=== PATIENT | female | born 1970 | race Caucasian/White ===

== ENCOUNTER 2016-08-05 15:58 | Emergency (ER) | payer OTHER ==
[~2016-08-05] VITALS: Ht 172.7 cm; Wt 113.4 kg
[2016-08-05] MEDS ORDERED: ASPI1TAB PO (16:38)
[2016-08-05] MEDS ORDERED: ONDANSETRON 4MG/2ML VIAL (J2405) IV ONE (17:30)
[2016-08-05] MEDS ORDERED: KETOROLAC 30 MG/ML VIAL (J1885) IV ONE (17:30)
[2016-08-05 18:09] LABS: BASO % 0.4 % (0.0-1.0); EOS # 0.2 K/mm3 (0.0-0.50); EOS % 1.6 % (0.0-3.0); LARGE UNSTAINED CELL # 0.2 K/mm3 (0.0-0.4); LARGE UNSTAINED CELL % 1.7 % (0.0-4.0); LYMPH # 2.6 K/mm3 (1.5-4.5); LYMPH % 23.2 % (24.0-44.0); MEAN CORPUSCULAR HEMOGLOBIN 29.2 pg (27.0-33.0); MEAN CORPUSCULAR VOLUME 88.5 fl (80.0-96.0); MONO # 0.8 K/mm3 (0.0-0.8); MONO % 7.3 % (0.0-5.0); NEUTROPHILS # 7.4 K/mm3 (1.8-7.7); NEUTROPHILS % 65.9 % (36.0-66.0); PLATELET COUNT, AUTOMATED 272 k/mm3 (150-450); RED CELL DISTRIBUTION WIDTH 13.1 % (11.5-14.5); WHITE BLOOD COUNT 11.2 K/mm3 (4.0-10.0)
[2016-08-05 18:25] LABS: ANION GAP 6 MEQ/L (8-16); BLOOD UREA NITROGEN 9 MG/DL (7-18); CALCIUM LEVEL 8.4 MG/DL (8.5-10.1); CARBON DIOXIDE LEVEL 29 MEQ/L (21-32); CHLORIDE LEVEL 101 MEQ/L (98-107); CREATININE FOR GFR 0.91 MG/DL (0.55-1.02); GLOMERULAR FILTRATION RATE > 60.0 (>58); GLUCOSE, FASTING 97 MG/DL (70-105); POTASSIUM SERUM 3.8 MEQ/L (3.5-5.1); SODIUM LEVEL 136 MEQ/L (136-145)
[2016-08-05 18:49] VITALS: BP 141/73
[2016-08-05] MEDS ORDERED: ZOFR4TAB3 PO (19:09)
[2016-08-05] MEDS ORDERED: MACR100C43 PO (19:09)
== END 2016-08-05 19:24 | disposition home or self-care (01) ==
LOC: M ED 17:08
DX: N39.0 Urinary tract infection, site not specified (principal); R11.0 Nausea

== ENCOUNTER 2017-03-07 10:41 | Emergency (ER) | payer OTHER, SELFPAY ==
[2017-03-07] MEDS: predniSONE 20 MG TAB PO ×3 (12:06)
[2017-03-07] MEDS: ALBUTEROL SULFATE 2.5 MG/0.5 ML INH NEB SOLN NEB ×3 (12:15)
== END 2017-03-07 13:12 | disposition home or self-care (01) ==
LOC: M ED 10:41
DX: J45.901 Unspecified asthma with (acute) exacerbation (principal); J20.9 Acute bronchitis, unspecified; Z87.891 Personal history of nicotine dependence
CPT/HCPCS: 71046

== ENCOUNTER 2017-04-27 09:33 | Emergency (ER) | payer OTHER ==
[2017-04-27] MEDS: NS 1,000 ML IV ×3 (11:26)
[2017-04-27] MEDS: MECLIZINE 25 MG TABLET PO ×3 (11:26)
[2017-04-27 11:29] LABS: HEMATOCRIT 36.9 % (36.0-47.0); HEMOGLOBIN 12.1 g/dl (12.0-16.0); MEAN CORPUSCULAR HEMOGLOBIN 28.9 pg (27.0-33.0); MEAN CORPUSCULAR HGB CONC 32.8 g/dl (32.0-36.5); MEAN CORPUSCULAR VOLUME 88.3 fl (80.0-96.0); PLATELET COUNT, AUTOMATED 258 10^3/uL (150-450); RED BLOOD COUNT 4.18 10^6/uL (4.00-5.40); RED CELL DISTRIBUTION WIDTH 13.1 % (11.5-14.5); WHITE BLOOD COUNT 8.4 10^3/uL (4.0-10.0)
[2017-04-27 11:53] LABS: ALBUMIN 3.5 GM/DL (3.2-5.2); ALBUMIN/GLOBULIN RATIO 0.83 (1.00-1.93); ALKALINE PHOSPHATASE 68 U/L (45-117); ALT/SGPT 29 U/L (12-78); ANION GAP 5 MEQ/L (8-16); AST/SGOT 25 U/L (7-37); BILIRUBIN,TOTAL 0.3 MG/DL (0.2-1.0); BLOOD UREA NITROGEN 12 MG/DL (7-18); CALCIUM LEVEL 8.9 MG/DL (8.5-10.1); CARBON DIOXIDE LEVEL 30 MEQ/L (21-32); CHLORIDE LEVEL 105 MEQ/L (98-107); CREATININE FOR GFR 0.72 MG/DL (0.55-1.30); GLOMERULAR FILTRATION RATE > 60.0 (>58); GLUCOSE, FASTING 104 MG/DL (70-100); POTASSIUM SERUM 4.5 MEQ/L (3.5-5.1); SODIUM LEVEL 140 MEQ/L (136-145); TOTAL PROTEIN 7.7 GM/DL (6.4-8.2)
== END 2017-04-27 12:53 | disposition home or self-care (01) ==
LOC: M ED 09:33
DX: H81.10 Benign paroxysmal vertigo, unspecified ear (principal); I10 Essential (primary) hypertension; J45.909 Unspecified asthma, uncomplicated; Z79.82 Long term (current) use of aspirin; Z87.891 Personal history of nicotine dependence
CPT/HCPCS: 70450

== ENCOUNTER → 2017-07-05 | Outpatient (REF) | payer OTHER ==
[2017-07-05 18:34] LABS: ESTIMATED AVERAGE GLUCOSE 123 MG/DL (60-110); HEMOGLOBIN A1c 5.9 %
[2017-07-05 18:45] LABS: ALBUMIN 3.8 GM/DL (3.2-5.2); ALKALINE PHOSPHATASE 75 U/L (45-117); ALT/SGPT 35 U/L (12-78); ANION GAP 6 MEQ/L (8-16); AST/SGOT 27 U/L (7-37); BILIRUBIN,TOTAL 0.3 MG/DL (0.2-1.0); BLOOD UREA NITROGEN 14 MG/DL (7-18); CALCIUM LEVEL 8.6 MG/DL (8.5-10.1); CARBON DIOXIDE LEVEL 28 MEQ/L (21-32); CHLORIDE LEVEL 107 MEQ/L (98-107); CHOLESTEROL LEVEL 181 MG/DL (<200); CHOLESTEROL RISK RATIO 4.525 (<5); FREE T4 1.06 NG/DL (0.76-1.46); GLOMERULAR FILTRATION RATE > 60.0 (>58); GLUCOSE, FASTING 87 MG/DL (70-100); HDL CHOLESTEROL 40 MG/DL (>40); LDL CHOLESTEROL 89.8 MG/DL (<100); NON-HDL-C 141 MG/DL; POTASSIUM SERUM 4.3 MEQ/L (3.5-5.1); SODIUM LEVEL 141 MEQ/L (136-145); THYROID STIMULATING HORMONE 0.974 uIU/ML (0.358-3.740); TRIGLYCERIDES LEVEL 256 MG/DL (<150)
== END ==
LOC: M SFHCPLAZ 15:38
DX: E66.01 Morbid (severe) obesity due to excess calories (principal); R35.1 Nocturia
CPT/HCPCS: 84443

== ENCOUNTER 2017-07-28 12:34 | Emergency (ER) | payer OTHER ==
[2017-07-28] MEDS: ACETAMINOPHEN 325 MG TAB PO (17:30)
== END 2017-07-28 17:33 | disposition home or self-care (01) ==
LOC: M ED 12:34
DX: M17.11 Unilateral primary osteoarthritis, right knee (principal); I10 Essential (primary) hypertension; J45.909 Unspecified asthma, uncomplicated; F33.9 Major depressive disorder, recurrent, unspecified; Z79.899 Other long term (current) drug therapy; Z79.82 Long term (current) use of aspirin; F17.210 Nicotine dependence, cigarettes, uncomplicated
CPT/HCPCS: 99283

== ENCOUNTER 2018-01-28 11:17 | Emergency (ER) | payer OTHER | END 2018-01-28 11:54 | disposition home or self-care (01) | LOC: M ED 11:17 | DX: H60.11 Cellulitis of right external ear (principal); I10 Essential (primary) hypertension; J45.909 Unspecified asthma, uncomplicated; F32.9 Major depressive disorder, single episode, unspecified | CPT/HCPCS: 99282 ==

== ENCOUNTER → 2018-05-22 | Outpatient (REF) | payer OTHER ==
[~2018-05-22] MED LIST: ASPI1TAB PO; BACT800T5 PO; ESCI10TA2; FISH100049 PO; MACR100C43 PO; MECL-68 PO; METO1TAB32; NORCOTAB PO; PRED20TA PO; PROAAER10 INH; VENL37.52; ZITHTAB PO; ZOFR4TAB14 PO
== END ==
LOC: M SFHCPLAZ 12:12
PROVIDERS: ATTEND Physician Assistant
DX: R35.0 Frequency of micturition (principal)

== ENCOUNTER → 2018-07-17 | Outpatient (REF) | payer OTHER ==
[~2018-07-17] MED LIST changes: -ASPI1TAB PO; +ASPI81TA26 PO; +HYDR-3715 PO; -NORCOTAB PO
[2018-07-17 19:23] LABS: BACTERIA, URINE AUTO NEGATIVE (NEGATIVE); MUCUS, URINE SMALL (NEGATIVE); RBC, URINE AUTO 1 /HPF (0-3); SQUAMOUS EPITHELIAL CELL UR AU 2 /HPF (0-6); WBC, URINE AUTO 2 /HPF (0-3)
== END ==
LOC: M SFHCPLAZ 17:51
PROVIDERS: ATTEND Family Medicine
DX: R31.29 Other microscopic hematuria (principal)

== ENCOUNTER → 2018-08-22 | Outpatient (REF) | payer OTHER ==
[2018-08-22 18:15] LABS: ALBUMIN 3.4 GM/DL (3.2-5.2); ALT/SGPT 32 U/L (12-78); BILIRUBIN,TOTAL 0.3 MG/DL (0.2-1.0); BLOOD UREA NITROGEN 11 MG/DL (7-18); CALCIUM LEVEL 8.8 MG/DL (8.5-10.1); CARBON DIOXIDE LEVEL 26 MEQ/L (21-32); CHLORIDE LEVEL 107 MEQ/L (98-107); CREATININE FOR GFR 0.96 MG/DL (0.55-1.30); FREE T4 0.91 NG/DL (0.76-1.46); GLOMERULAR FILTRATION RATE > 60.0 (>58); GLUCOSE, FASTING 137 MG/DL (70-100); SODIUM LEVEL 141 MEQ/L (136-145); THYROID STIMULATING HORMONE 0.861 uIU/ML (0.358-3.740); TOTAL PROTEIN 7.6 GM/DL (6.4-8.2)
[2018-08-22 18:28] LABS: APPEARANCE, URINE CLEAR (CLEAR); BACTERIA, URINE AUTO NEGATIVE (NEGATIVE); BILIRUBIN, URINE AUTO NEGATIVE (NEGATIVE); BLOOD, URINE BLOOD NEGATIVE (NEGATIVE); COLOR, URINE YELLOW (YELLOW); GLUCOSE, URINE (UA) AUTO NEGATIVE (NEGATIVE); KETONE, URINE AUTO NEGATIVE (NEGATIVE); LEUKOCYTE ESTERASE, URINE AUTO NEGATIVE (NEGATIVE); MUCUS, URINE SMALL (NEGATIVE); NITRITE, URINE AUTO NEGATIVE (NEGATIVE); PROTEIN, URINE AUTO NEGATIVE (NEGATIVE); RBC, URINE AUTO 2 /HPF (0-3); SQUAMOUS EPITHELIAL CELL UR AU 2 /HPF (0-6); UROBILINOGEN, URINE AUTO 0.2 mg/dL (0.0-2.0); WBC, URINE AUTO 0 /HPF (0-3)
[2018-08-22 18:31] LABS: HEMOGLOBIN A1c 6.2 %
== END ==
LOC: M SFHCPLAZ 15:31
PROVIDERS: ATTEND Family Medicine
DX: R63.1 Polydipsia (principal); R35.0 Frequency of micturition

== ENCOUNTER 2018-11-15 11:17 | Emergency (ER) | payer OTHER ==
[~2018-11-15] VITALS: Ht 162.6 cm; Wt 146.3 kg
[2018-11-15] MEDS ORDERED: TESS100C PO (15:54)
[2018-11-15] MEDS ORDERED: FLON1SPR NARES (15:54)
--- NOTE | 2018-11-15 16:04 | REP ---
Chest x-ray: Two views. History: Productive cough . Comparison study: March 07, 2017 . Findings: The lungs are well inflated and free of infiltrate. The pleural angles are sharp. The heart size is normal. Pulmonary vasculature is not increased. No significant bony abnormality is seen. Impression: Negative chest x-ray. Electronically Signed by Itz Chou MD 11/15/2018 03:54 P
[2018-11-15 16:23] VITALS: BP 142/78
== END 2018-11-15 16:48 | disposition home or self-care (01) ==
LOC: M ED 11:17
DX: J06.9 Acute upper respiratory infection, unspecified (principal); J30.2 Other seasonal allergic rhinitis; J30.81 Allergic rhinitis due to animal (cat) (dog) hair and dander; F17.210 Nicotine dependence, cigarettes, uncomplicated; Z79.899 Other long term (current) drug therapy; Z79.82 Long term (current) use of aspirin

== ENCOUNTER 2020-10-31 20:43 | Emergency (ER) | payer OTHER ==
[~2020-10-31] VITALS: Ht 175.3 cm; Wt 159.1 kg
[~2020-10-31 20:43] MED LIST changes: +ESCI10TA16; -ESCI10TA2; +FLON1SPR NARES; -MECL-68 PO; +MECL1TAB31 PO; +TESS100C PO
[2020-10-31 22:43] VITALS: O2SAT 97
--- NOTE | 2020-10-31 23:29 | REPVR ---
PROCEDURE INFORMATION: Exam: XR Chest Exam date and time: 10/31/20 (10:25pm) Age: 50 years old Clinical indication: SOB and cough TECHNIQUE: Imaging protocol: XR of the chest Views: 2 views COMPARISON: Chest films of 01/07/17 FINDINGS: Slightly suboptimal inspiratory effort. No focal infiltrates. No pleural effusions. No significant vascular congestion. Diffuse degenerative thoracic spine changes again seen. IMPRESSION: No acute findings. In general, a similar appearance was noted in 2016. Electronically signed by: Tosha Mead On 10/31/2020 23:28:47 PM
[2020-10-31 23:39] LABS: BASO # 0.1 10^3/uL (0.0-0.2); BASO % 0.6 % (0.0-1.0); EOS # 0.5 10^3/uL (0.0-0.5); EOS % 4.4 % (0.0-3.0); LYMPH # 4.1 10^3/uL (1.5-5.0); LYMPH % 39.7 % (24.0-44.0); MEAN CORPUSCULAR HEMOGLOBIN 29.1 pg (27.0-33.0); MEAN CORPUSCULAR HGB CONC 32.5 g/dl (32.0-36.5); MEAN CORPUSCULAR VOLUME 89.5 fl (80.0-96.0); MONO # 0.9 10^3/uL (0.0-0.8); MONO % 8.2 % (2.0-8.0); NEUTROPHILS # 4.8 10^3/uL (1.5-8.5); NEUTROPHILS % 46.5 % (36.0-66.0); PLATELET COUNT, AUTOMATED 232 10^3/uL (150-450); RED BLOOD COUNT 4.47 10^6/uL (4.00-5.40); WHITE BLOOD COUNT 10.4 10^3/uL (4.0-10.0)
[2020-10-31] MEDS ORDERED: BENZONATATE 100 MG CAP PO ONE (23:50)
[2020-11-01 00:10] LABS: D-DIMER QUANT > 4000 ng/ml (<500)
[2020-11-01] MEDS ORDERED: ISOVUE-370 76% 100ML VIAL As Ordered ONE (00:42)
--- NOTE | 2020-11-01 01:28 | REPVR ---
PROCEDURE INFORMATION: Exam: CTA Chest With Contrast Exam date and time: 11/01/2020 12:54 AM Age: 50 years old Clinical indication: Other: Elevated d dimer, SOB, RO pe TECHNIQUE: Imaging protocol: Computed tomographic angiography of the chest with contrast. 3D rendering (Not supervised by radiologist): MIP and/or 3D reconstructed images were created by the technologist. Radiation optimization: All CT scans at this facility use at least one of these dose optimization techniques: automated exposure control; mA and/or kV adjustment per patient size (includes targeted exams where dose is matched to clinical indication); or iterative reconstruction. Contrast material: ISOVUE 370; Contrast volume: 75 ml; Contrast route: INTRAVENOUS (IV); COMPARISON: CT ANGIO CHEST 03/27/2015 5:17 PM FINDINGS: Pulmonary arteries: There is a large saddle pulmonary embolism with a large amount of thrombus extending into lobar, segmental, and subsegmental arteries throughout both lungs. Aorta: Unremarkable. No aortic aneurysm. No aortic dissection. Lungs: Clear. No consolidation. No masses. Pleural spaces: No pneumothorax. No pleural effusion. Heart: The right ventricle is dilated with RV-LV ratio of 1.5. No pericardial effusion. Lymph nodes: Unremarkable. No enlarged lymph nodes. Bones/joints: Unremarkable. No acute fracture. Soft tissues: Unremarkable. IMPRESSION: 1. Large saddle pulmonary embolism with thrombus extending throughout both lungs. 2. Enlarged right ventricle suggesting right heart strain with RV-LV ratio of 1.5. Findings were discussed with JEIMY YOST at 1:27 AM EDT on 11/01/2020. Electronically signed by: Mateo Fairbanks On 11/01/2020 01:28:11 AM
[2020-11-01] MEDS ORDERED: FISH1000 PO (01:35)
[2020-11-01] MEDS ORDERED: HOME MED LIST COMPLETE! XX SCH (01:35)
[2020-11-01 01:44] LABS: INR 1.09; PROTHROMBIN TIME 14.6 SECONDS (12.7-14.5)
[2020-11-01 01:45] LABS: PARTIAL THROMBOPLASTIN TIME 32.1 SECONDS (25.9-37.0)
[2020-11-01] MEDS ORDERED: HEPARIN DRIP 25,000 UNITS in IV 1 EA IV SCH (02:00)
[2020-11-01] MEDS ORDERED: HEPARIN SOD (PORCINE) 5000UNITS/ML 1ML VIAL/SYRINGE IV ONE (02:00)
[2020-11-01 02:39] LABS: CK-MB VALUE MASS 1.3 NG/ML (<3.6); MB/CK RELATIVE INDEX 1.57 (< OR =4); TROPONIN I 0.04 NG/ML (< 0.10)
[2020-11-01 02:49] LABS: RSV AMPLIFICATION NEGATIVE (NEGATIVE)
--- NOTE | 2020-11-01 03:17 | REPVR ---
PROCEDURE INFORMATION: Exam: US Duplex Lower Extremity Veins, Bilateral Exam date and time: 11/01/2020 3:07 AM Age: 50 years old Clinical indication: Swelling (edema) of limb; Lower extremity, bilateral; Additional info: Saddle pe, RO clots in the legs TECHNIQUE: Imaging protocol: Real-time duplex ultrasound of the extremities with 2-D govea scale, color Doppler flow and spectral waveform analysis with image documentation. Complete exam focused on the bilateral lower extremity veins. COMPARISON: RENAL US 07/24/2018 11:53 AM FINDINGS: Right deep veins: Unremarkable. The common femoral, femoral, proximal profunda femoral and popliteal veins are patent without thrombus. Normal Doppler waveforms. Normal compressibility and/or augmentation response. Left deep veins: No intraluminal thrombus is seen in the common or superficial femoral veins. There is occlusive thrombus in the popliteal vein. The trifurcation and veins in the foreleg are not well visualized due to patient body habitus. Soft tissues: Unremarkable. IMPRESSION: Occlusive thrombus in the left popliteal vein. Electronically signed by: Mateo Fairbanks On 11/01/2020 03:16:53 AM
[2020-11-01] MEDS ORDERED: ONDANSETRON 4MG/2ML VIAL IV ONE (04:20)
[2020-11-01 04:30] VITALS: BP 143/79
--- NOTE | 2020-11-01 06:28 | ECGEPIP ---
[facility] - ED Test Date: 2020-10-31 Pat Name: MIREYA VARGAS Department: Room: - Gender: Female Computer Installer: SB : 1970 Requested By: JEIMY Holley PA-C Order Number: [id number] Reading MD: Espinoza Monteiro Measurements Intervals [place] Rate: 86 P: 52 IN: 128 QRS: 24 QRSD: 96 T: 8 QT: 412 QTc: 493 Interpretive Statements Normal sinus rhythm Inferior infarct , age undetermined Nonspecific ST T wave changes Baseline artifact may affect reading Baseline wandering may affect reading cw 04/27/[address] T wave changes Electronically Signed on 11-01-2020 6:28:08 EDT by Espinoza Monteiro
== END 2020-11-01 04:49 | disposition short-term general hospital (02) ==
LOC: M ED 20:43
DX: I82.432 Acute embolism and thrombosis of left popliteal vein (principal); I26.92 Saddle embolus of pulmonary artery without acute cor pulmonale; I51.7 Cardiomegaly; R79.1 Abnormal coagulation profile; E11.9 Type 2 diabetes mellitus without complications; Z77.22 Contact with and (suspected) exposure to environmental tobacco smoke (acute) (chronic); Z79.82 Long term (current) use of aspirin
CPT/HCPCS: 71046; 71275; 80047; 81240; 82550; 82553; 83880; 84311; 85025; 85300; 85301; 85303; 85305; 85379; 85610; 85730; 86147; 87631; 93005; 93041; 93970; 94760; 96374; 96375; 99285; J1644; J2405; Q9967

== ENCOUNTER 2020-12-24 15:25 | Emergency (ER) | payer OTHER ==
[~2020-12-24] VITALS: Ht 175.3 cm; Wt 159.1 kg
[~2020-12-24 15:25] MED LIST changes: +FISH1000 PO
[2020-12-24 15:26] VITALS: BP 148/76
--- OUTSIDE RECORDS SUMMARY | 2020-12-24 15:34 | CCD ---
Author Author [facility] Organization [facility] Address Unknown Phone Unavailable Care Team Providers Care Combine Driver Name Role Phone Lupe Romero Unavailable PROBLEMS Type Condition ICD9-CM Code [id number] Code Onset Dates Condition S tatus W/U Status Risk SNOMED Code Notes Problem Hot flashes due to menopause N95.1 Active confirme d 868437883 Problem Depression with anxiety F41.8 Active confirmed 328105262 Problem Body mass index (BMI) of 40.0-44.9 in adult Z68.41 Active confirmed 975957003 Problem Anxiety F41.9 Active confirmed 58634065 Problem Prediabetes R73.03 Active confirmed 65785485 2 Problem Polydipsia R63.1 Active confirmed 71990489 Problem Morbid (severe) obesity due to excess calories E66 .01 Active confirmed 271847400 Problem Other chronic pain G89.29 Active confirmed 8 2180738 Problem 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 Active confirmed 09583 685884027 Problem Cyst on ear Q18.1 Active confirmed 13211967 570146 ALLERGIES No Known Allergies ENCOUNTERS from 1970 to 2020-11-06 Encounter Location Date Provider Diagnosis [address] [phone] [place] [address] Nov, Lupe Romero IMMUNIZATIONS No Information SOCIAL HISTORY Tobacco Use: Social History Observation Description Date Details (start date - stop date) Former Smoker Sex Assigned At : Social History Observation Description Sex Assigned At Unknown Education: Question Answer Notes Level of Education: High School Language: Question Answer Notes Languages spoken: Romansh Catholic: Question Answer Notes Catholic will only accept blo od from other family members Sexual Hx: Question Answer Notes Had sex in the last 12 months (vaginal, oral, or anal)? No LMP: 06/05/2017 Have you ever had an STD? No Alcohol Screening: Question Answer Notes Did you have a drink containing alcohol in the past year? No Points 0 Interpretation Negative Tobacco Use: Question Answer Notes Are you a: former smoker How long has it been since you last smoked? 6-12 months REASON FOR REFERRAL No Information VITAL SIGNS No information MEDICATIONS Medication SIG (Take, Route, Frequency, Duration) Notes Start Da te End Date Status hydrOXYzine HCl 25 mg 1 tablet as needed Orally every 6 hrs for 30 day(s) May, Active Sudafed 30 MG 1 tablet as needed Orally ev roberto 6 hrs as needed for congestion for 10 day(s) July, Active Fluticasone Propionate 50 MCG/ACT 1 spray in each nost ril Nasally As directed for 30 day(s) twice daily for 10 days, then daily thereafter May, Active Chloraseptic Sore Throat 6-10 MG 1 lozenge as needed Mouth/Throa t every 2 hrs Active HYDROcodone-Acetaminophen 5-325 MG 1 tablet as needed Orally every 6 hrs Not-Taking Venlafaxine HCl ER 37.5 MG 1 capsule with food Orally Once a day for 30 day(s) July, Not-Taking Oxybutynin Chloride 5 MG 1 tablet Orally Twice a day for overactive bladder for 30 day(s) Aug, Active Fish Oil 1000 MG 1 capsule Orally Once a day Active Aspirin 81 81 MG 1 tablet Orally Once a day Active Amoxicillin 500 MG 1 capsule Orally every 8 hrs completed Not-Taking diphenhydrAMINE HCl 50 MG 1 capsule as needed Orally n ightly with Sudafed for 10 day(s) July, Active PROCEDURES No Information RESULTS No Results REASON FOR VISIT question on pulse ox MEDICAL (GENERAL) HISTORY Type Description Date Medical History Morbid obesity Medical History Very poor dentition Medical History ?Palpitations - HOLTER by Dr. Escobar Medical History Chronic allergic rhinitis Medical History Current light smoker; former heavy smoker x 3 years; hx of prior pneumovax Surgical History Tonsillectomy child Surgical History x 1 1993 Hospitalization History pneumonia child Goals Section No Information Health Concerns No Information MEDICAL EQUIPMENT No Information MENTAL STATUS No Information FUNCTIONAL STATUS No Information ASSESSMENTS No Information PLAN OF TREATMENT Medication Medication Name Sig Start Date Stop Date Oxybutynin Chloride 5 MG 1 tablet Orally Twice a day for overactive bladder for 30 day(s) Aug, Next Appt Details Provider Name:Lupe Romero, 2020-11-17 11:15:00 AM, [address] [facility], , [place], [address], Insurance Providers Payer Name Payer Address Payer Phone Insured Name Patient Relati onship to Insured Coverage Start Date Coverage End Date [facility] [address] [facility] [phone] MIREYA CHRISTOPHER self
--- OUTSIDE RECORDS SUMMARY | 2020-12-24 15:34 | CCD | Continuity of Care Document ---
Author Author Laila HUANG MD Organization Unknown Address [address] [place] [address] [address] [place] [address] Phone [phone] Care Team Providers Care Soft Iron Inspector Name Role Phone Lupe Romero MD AUT [phone] Problems Description No Information Available Social History Type Date Description Comments Sex Unknown Allergies, Adverse Reactions, Alerts Description No Information Available Medications Description No Information Available Immunizations Description No Information Available Vital Signs Description No Information Available Results Description No Information Available Procedures Date Code Description Status 11/02/2020 62310 Arterial Infusion Thrombolysis O ther Than Carotid Completed 11/02/2020 93089 Catheter Placement Left/Right Pu lmonary Artery Completed 11/01/2020 72163 Hospital Initial Care Level 2 Co mpleted Medical Devices Description No Information Available Encounters Description No Information Available Assessments Date Code Description Provider 11/02/2020 I26.02 Saddle embolus of pulmonary ann-marie ry with acute cor pulmonale Abner Huang MD 11/01/2020 I26.02 Saddle embolus of pulmonary ann-marie ry with acute cor pulmonale Abner Huang MD Plan of Treatment No Information Available Functional Status Description No Information Available Mental Status Description No Information Available Referrals Refer to Reason for Referral Status Appt Date Abner Huang MD Created [address] [place] [address] [phone]
--- OUTSIDE RECORDS SUMMARY | 2020-12-24 15:34 | CCD ---
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 20 Active confirmed 306799378 Problem Body mass index (BMI) of 40.0-44.9 in adult Z68.41 Active confirmed 616885915 Problem Polydipsia R63.1 Active confirmed 15091522 Problem Anxiety F41.9 Active confirmed 83593730 Problem Acute saddle pulmonary embolism with acute cor pulmonale I26.02 Active confirmed 324432511 Problem Allergic to cats J30.81 Active confirmed 232 518170 ALLERGIES No Known Allergies ENCOUNTERS from 1970 to 2020-11-24 Encounter Location Date Provider Diagnosis [place] [id number] [facility] [phone] [place] [address] Nov, Dulce Oneil IMMUNIZATIONS Vaccine Route Administration Date Status COVID-19 dose #1 given elsewhere Unspecified Unknown Oct 21, 2020 Administered SOCIAL HISTORY Tobacco Use: Social History Observation Description Date Details (start date - stop date) Former Smoker Sex Assigned At : Social History Observation Description Sex Assigned At Unknown Education: Question Answer Notes Level of Education: High School Language: Question Answer Notes Languages spoken: Danish Yarsanism: Question Answer Notes Yarsanism will only accept blo od from other [...] Notes Start Da te End Date Status HYDROcodone-Acetaminophen 5-325 MG 1 tablet as needed Orally every 6 hrs Not-Taking Eliquis 5 MG as directed Orally Acti ve Fluticasone Propionate 50 MCG/ACT 1 spray in each nost ril Nasally As directed for 30 day(s) twice daily for 10 days, then daily thereafter May, Not-Taking diphenhydrAMINE HCl 50 MG 1 capsule as needed Orally n ightly with Sudafed for 10 day(s) July, Not-Taking Oxybutynin Chloride 5 MG 1 tablet Orally Twice a day for overactive bladder for 30 day(s) Aug, Not-Taking Chloraseptic Sore Throat 6-10 MG 1 lozenge as needed Mouth/Throa t every 2 hrs Not-Taking hydrOXYzine HCl 25 mg 1 tablet as needed Orally every 6 hrs for 30 day(s) May, Not-Taking Amoxicillin 500 MG 1 capsule Orally every 8 hrs completed Not-Taking Fluticasone Propionate 50 MCG/ACT 1 spray in each nost ril Nasally Once a day for 30 day(s) Nov, Active Venlafaxine HCl ER 37.5 MG 1 capsule with food Orally Once a day for 30 day(s) July, Not-Taking Claritin 10 MG 1 tablet Orally Once a day for 30 day(s) Nov, Active Sudafed 30 MG 1 tablet as needed Orally ev roberto 6 hrs as needed for congestion for 10 day(s) July, Not-Taking Albuterol Sulfate (2.5 MG/3ML) 0.083% 3 ml as needed I nhalation every 6 hrs for 30 Days Nov, Active Eliquis 5 MG as directed Orally bid for 30 Days Nov, Active PROCEDURES No Information RESULTS No Results REASON FOR VISIT PA request MEDICAL (GENERAL) HISTORY Type Description Date Medical History Morbid obesity Medical History Very poor dentition Medical History ?Palpitations - HOLTER by Dr. Escobar Medical History Chronic allergic rhinitis Medical History Current light smoker; former heavy smoker x 3 years; hx of prior pneumovax Medical History Saddle pulmonary Embolus c R t. Heart Strain, Ekos cath. placed c alteplase, porsine heparin rx- by Dr. Yuen @ [facility] 10/2020; Left popliteal Vein Thrombus Surgical History Tonsillectomy child Surgical History x 1 1993 Hospitalization History pneumonia child Hospitalization History pulmonary embolism 2020 Goals Section No Information Health Concerns No Information MEDICAL EQUIPMENT No Information MENTAL STATUS No Information FUNCTIONAL STATUS No Information ASSESSMENTS No Information PLAN OF TREATMENT Medication Medication Name Sig Start Date Stop Date Claritin 10 MG 1 tablet Orally Once a day for 30 day(s) Nov, Albuterol Sulfate (2.5 MG/3ML) 0.083% 3 ml as needed I nhalation every 6 hrs for 30 Days Nov, Eliquis 5 MG as directed Orally bid for 30 Days Nov, Fluticasone Propionate 50 MCG/ACT 1 spray in each nost ril Nasally Once a day for 30 day(s) Nov, Next Appt Details Provider Name:Dulce Re Oneil, 12-01 10:30:00 AM, [address] [facility], , [place], [address], Insurance Providers Payer Name Payer Address Payer Phone Insured Name Patient Relati onship to Insured Coverage Start Date Coverage End Date [facility] [address] [facility] [address] MIREYA CHRISTOPHER self
--- OUTSIDE RECORDS SUMMARY | 2020-12-24 15:34 | CCD ---
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 20 Active confirmed 180236837 Problem Body mass index (BMI) of 40.0-44.9 in adult Z68.41 Active confirmed 826847102 Problem Polydipsia R63.1 Active confirmed 40805529 Problem Anxiety F41.9 Active confirmed 52730587 Problem Acute saddle pulmonary embolism with acute cor pulmonale I26.02 Active confirmed 256610394 Problem Allergic to cats J30.81 Active confirmed 232 697506 ALLERGIES No Known Allergies ENCOUNTERS from 1970 to 2020-11-20 Encounter Location Date Provider Diagnosis [facility] [address] [facility] [phone] [place] [address] Nov, Dulce Oneil IMMUNIZATIONS Vaccine Route Administration [...] School Language: Question Answer Notes Languages spoken: Kyrgyz Sikh: Question Answer Notes Sikh will only accept blo od from other [...] Information RESULTS No Results REASON FOR VISIT covid vaccine inform. MEDICAL (GENERAL) HISTORY Type Description Date Medical [...] porsine heparin rx- by Dr. Yuen @ [facility] 10/2020; Left popliteal Vein Thrombus Surgical History [...] Name:Dulce Re Oneil, 12-01 10:30:00 AM, [address] [facility], , [place], [address], Insurance Providers Payer Name Payer Address Payer Phone Insured Name Patient Relati onship to Insured Coverage Start Date Coverage End Date [facility] [address] [facility] [address] MIREYA CHRISTOPHER self
--- OUTSIDE RECORDS SUMMARY | 2020-12-24 15:34 | CCD ---
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 20 Active confirmed 687000871 Problem Body mass index (BMI) of 40.0-44.9 in adult Z68.41 Active confirmed 092323526 Problem Polydipsia R63.1 Active confirmed 95957426 Problem Anxiety F41.9 Active confirmed 90545968 Problem Acute saddle pulmonary embolism with acute cor pulmonale I26.02 Active confirmed 206885072 Problem Allergic to cats J30.81 Active confirmed 232 013028 ALLERGIES No Known Allergies ENCOUNTERS from 1970 to 2020-11-25 Encounter Location Date Provider Diagnosis [facility] [address] [facility] [phone] [place] [address] 15 Nov, 2020 Dulce Oneil Physical exam, annual Z00.00 ; Acute saddle pulmonary embolism with acute cor pulmonale I26.02 ; Mild intermittent asthma without complication J45.20 ; Allergic to cats J30.81 ; Hypoxia R09.02 and Hypoxia, sleep related G47.34 IMMUNIZATIONS Vaccine Route Administration Date Status COVID-19 dose #1 given elsewhere Unspecified Unknown Oct 21, 2020 Administered SOCIAL HISTORY Tobacco Use: Social History Observation Description Date Details (start date - stop date) Former Smoker Sex Assigned At : Social History Observation Description Sex Assigned At Unknown Education: Question Answer Notes Level of Education: High School Language: Question Answer Notes Languages spoken: Chinese Episcopalian: Question Answer Notes Episcopalian will only accept blo od from other [...] last smoked? 6-12 months REASON FOR REFERRAL from 1970 to 2020-11-25 Reason 50yocf inpt. for PE, had hyp oxia after ekos & alteplase after out of ICU was doing well, but notedto have hypoxia on oximeter to 93%.|She has snored, early am fatigue. Pls. DO HST. Diagnosis 1 Hypoxia, sleep related (G47. 34) Diagnosis 2 Morbid (severe) obesity due to excess calories (E66.01) Referral Organization [facility] Jacek Referring Provider First Name Dulce Referring Provider Last Name Clarice Referring Provider Specialty Family Medicine Referred Provider [facility],Sleep Lab Referred Provider Specialty Neurology Referral Priority Routine General Notes Rebeca Reddy 11/18/2020 3: 51:37 PM > please obtain Tamiko Ching 11/23/2020 2:23:40 PM > [facility] referral done for Dr. Delvalle ID# [id number], form faxed VITAL SIGNS Weight 353.8 lbs Nov, Weight-kg 160.48 kg Nov, Height 68 in Nov, BMI 53.79 kg/m2 Nov, Heart Rate 100 /min Nov, Respiratory Rate 18 /min Nov, Temperature 97.3 degrees Fahrenheit Nov, Oximetry 98% Nov, Blood pressure systolic 124 mm Hg Nov, Blood pressure diastolic 82 mm Hg Nov, MEDICATIONS Medication SIG (Take, Route, Frequency, Duration) [...] Information RESULTS No Results REASON FOR VISIT hospital follow up [facility] MEDICAL (GENERAL) HISTORY Type Description Date Medical [...] porsine heparin rx- by Dr. Yuen @ [facility] 10/2020; Left popliteal Vein Thrombus Surgical History Tonsillectomy child Surgical History x 1 1993 Hospitalization History pneumonia child Hospitalization History pulmonary embolism 2020 Goals Section No Information Health Concerns No Information MEDICAL EQUIPMENT No Information MENTAL STATUS No Information FUNCTIONAL STATUS No Information ASSESSMENTS Encounter Date Diagnosis Assessment Notes Treatment Notes Treatm ent Clinical Notes Nov, Physical exam, annual (ICD-10 - Z00.00) Nov, Acute saddle pulmonary embol ism with acute cor pulmonale (ICD-10 - I26.02) Nov, Mild intermittent asthma without complication (I CD-10 - J45.20) Nov, Allergic to cats (ICD-10 - J30.81) Nov, Hypoxia (ICD-10 - R09.02) Nov, Hypoxia, sleep related (ICD-10 - G47.34) While inpt. dropped to 93% after out of ICU, will do HST PLAN OF TREATMENT Medication Medication Name Sig [...] Once a day for 30 day(s) Nov, Treatment Notes Assessment Notes Clinical Notes Hypoxia, sleep related While inpt. dropp ed to 93% after out of ICU, will do HST Referrals Referral Date Details 50yocf inpt. for PE, had hyp oxia after ekos & alteplase after out of ICU was doing well, but notedto have hypoxia on oximeter to 93%.|She has snored, early am fatigue. Pls. DO HST., Sleep Lab [facility] Next Appt Details 2 Weeks c SS Reason: Provider Name:Dulce Oneil, 2021-0 9-28 10:30:00 AM, [address] [facility], , [place], [address], Insurance Providers Payer Name Payer Address Payer Phone Insured Name Patient Relati onship to Insured Coverage Start Date Coverage End Date [facility] COMMUN[facility] PL[facility] [address] [facility] [phone] MIREYA CHRISTOPHER self"
--- OUTSIDE RECORDS SUMMARY | 2020-12-24 15:35 | CCD ---
Author Author [facility] Organization [facility] Address Unknown Phone Unavailable Care Team Providers Care Occupational Psychologist Name Role Phone MELI MENDIOLA MD Unavailable Unavailable MELI MENDIOLA MD Unavailable Unavailable MELI MENDIOLA MD Unavailable Unavailable MELI MENDIOLA MD Unavailable Unavailable MELI MENDIOLA MD Unavailable Unavailable MELI MENDIOLA MD Unavailable Unavailable MELI MENDIOLA MD Unavailable Unavailable MELI MENDIOLA MD Unavailable Unavailable MELI MENDIOLA MD Unavailable Unavailable MELI MENDIOLA MD Unavailable Unavailable MELI MENDIOLA MD Unavailable Unavailable MELI MENDIOLA MD Unavailable Unavailable MELI MENDIOLA MD Unavailable Unavailable MELI MENDIOLA MD Unavailable Unavailable MELI MENDIOLA MD Unavailable Unavailable MELI MENDIOLA MD Unavailable Unavailable MELI MENDIOLA MD Unavailable Unavailable MELI MENDIOLA MD Unavailable Unavailable MELI MENDIOLA MD Unavailable Unavailable MELI MENDIOLA MD Unavailable Unavailable MELI MENDIOLA MD Unavailable Unavailable MELI MENDIOLA MD Unavailable Unavailable AHMED, MELI Unavailable Unavailable AHMED, MELI Unavailable Unavailable AHMED, MELI MD Unavailable Unavailable AHMED, MELI MD Unavailable Unavailable AHMED, MELI MD Unavailable Unavailable AHMED, MELI Unavailable Unavailable Chava KRAUSE Unavailable Unavailable Chava KRAUSE MD Unavailable Unavailable Jesica, Reynaldo Unavailable [phone] Philippehaw, Reynaldo Unavailable [phone] Philippehaw, Reynaldo Unavailable [phone] Philippehaw, Reynaldo Unavailable [phone] Philippehaw, Reynaldo Unavailable [phone] Philippehaw, Reynaldo Unavailable [phone] Anthony Calderon MD Unavailable Unavailable Anthony Calderon MD Unavailable Unavailable Anthony Calderon MD Unavailable Unavailable Anthony Calderon MD Unavailable Unavailable Anthony Calderon MD Unavailable Unavailable Anthony Calderon MD Unavailable Unavailable Anthony Calderon MD Unavailable Unavailable Anthony Calderon MD Unavailable Unavailable Anthony Calderon MD Unavailable Unavailable Anthony Calderon MD Unavailable Unavailable Anthony Calderon MD Unavailable Unavailable Anthony Calderon MD Unavailable Unavailable Anthony Calderon MD Unavailable Unavailable Anthony Calderon MD Unavailable Unavailable Anthony Calderon MD Unavailable Unavailable Anthony Calderon MD Unavailable Unavailable Esme Peck MD Unavailable Unavailable Esme Peck MD Unavailable Unavailable Esme Peck MD Unavailable Unavailable Esme Peck MD Unavailable Unavailable Esme Peck MD Unavailable Unavailable Esme Peck MD Unavailable Unavailable Esme Peck MD Unavailable Unavailable Esme Peck MD Unavailable Unavailable Esme Peck MD Unavailable Unavailable Esme Peck MD Unavailable Unavailable Esme Peck MD Unavailable Unavailable Esme Peck MD Unavailable Unavailable Esme Peck MD Unavailable Unavailable Esme Peck MD Unavailable Unavailable Esme Peck MD Unavailable Unavailable Esme Peck MD Unavailable Unavailable Esme Peck MD Unavailable Unavailable Esme Peck MD Unavailable Unavailable Esme Peck MD Unavailable Unavailable Esme Peck MD Unavailable Unavailable Esme Peck MD Unavailable Unavailable Esme Peck MD Unavailable Unavailable Esme Peck MD Unavailable Unavailable Esme Peck MD Unavailable Unavailable Esme Peck MD Unavailable Unavailable JADE, J DIANNA MD Unavailable Unavailable JADE, J DIANNA MD Unavailable Unavailable JADE, J DIANNA MD Unavailable Unavailable JADE, J DIANNA MD Unavailable Unavailable JADE, J DIANNA MD Unavailable Unavailable JADE, J DIANNA MD Unavailable Unavailable JADE, J DIANNA MD Unavailable Unavailable JADE, J DIANNA MD Unavailable Unavailable JADE, J DIANNA MD Unavailable Unavailable JADE, J DIANNA MD Unavailable Unavailable JADE, J DIANNA MD Unavailable Unavailable JADE, J DIANNA MD Unavailable Unavailable JADE, J DIANNA MD Unavailable Unavailable JADE, J DIANNA MD Unavailable Unavailable JADE, J DIANNA MD Unavailable Unavailable JADE, J DIANNA MD Unavailable Unavailable JADE, J DIANNA MD Unavailable Unavailable JADE, J DIANNA MD Unavailable Unavailable JADE, J DIANNA MD Unavailable Unavailable JADE, J DIANNA MD Unavailable Unavailable JADE, J DIANNA MD Unavailable Unavailable JADE, J DIANNA MD Unavailable Unavailable JADE, J DIANNA MD Unavailable Unavailable JADE, J DIANNA MD Unavailable Unavailable JADE, J DIANNA MD Unavailable Unavailable Re-disclosure Warning The records that you are about to access may contain information from federally-assisted alcohol or drug abuse programs. If such information is present, then the following federally mandated warning applies: This information has been disclosed to you from records protected by federal confidentiality rules (42 CFR part 2). The federal rules prohibit you from making any further disclosure of this information unless further disclosure is expressly permitted by the written consent of the person to whom it pertains or as otherwise permitted by 42 CFR part 2. A general authorization for the release of medical or other information is NOT sufficient for this purpose. The Federal rules restrict any use of the information to criminally investigate or prosecute any alcohol or drug abuse patient.The records that you are about to access may contain highly sensitive health information, the redisclosure of which is protected by Article 27-F of the [facility] Public Health law. If you continue you may have access to information: Regarding HIV / AIDS; Provided by facilities licensed or operated by the [facility] Office of Mental Health; or Provided by the [facility] Office for People With Developmental Disabilities. If such information is present, then the following [facility] mandated warning applies: This information has been disclosed to you from confidential records which are protected by state law. State law prohibits you from making any further disclosure of this information without the specific written consent of the person to whom it pertains, or as otherwise permitted by law. Any unauthorized further disclosure in violation of state law may result in a fine or mcc sentence or both. A general authorization for the release of medical or other information is NOT sufficient authorization for further disc losure. Family History Family Member Name Family Member Gender Family Member Status Date o f Status Description Data Source(s) Unknown Unknown Problem MEDENT ([facility]) Unknown Male Problem MEDENT ([facility]) Unknown Male Problem [facility] ([facility]) Encounters Encounter Providers Location Date Indications Data Source(s ) [place] [address] [facility] [facility] [address] 11/18/2020 12:00:00 AM EDT eCW1 ([facility]) [place] [address] [facility] [place] [address] 11/18/2020 12:00:00 AM EDT eCW1 ([facility]) Unknown [address] [facility] [address] 11/18/2020 12:00:00 AM EDT eCW1 ([facility]) Unknown [address] [facility] [address] 11/05/2020 12:00:00 AM EDT eCW1 ([facility]) Inpatient Attender: DIANNA HANSEN MDAtt wei: MELI MENDIOLA MDAttender: Anthony Calderon MDAttender: ESTHELA KRAUSE MDAttender: ESTHELA KRAUSEAdmitter: ESTHELA KRAUSE MD [id number] 11/01/2020 06:33:00 AM EDT - 11/03/2020 02:35:00 PM EDT [facility] Patient discharged. Outpatient Attender: Reynaldo Mooney 10/15 03:50:15 PM EDT - 10/15/2020 05:38:59 PM EDT [facility] ([facility] ) Outpatient Attender: Spring Peck MD 0 05/08/2020 11:28:43 AM EST - 05/08/2020 12:04:25 PM EST [facility] ([facility]) Immunizations Vaccine Date Status Description Data Source(s) COVID-19 dose #1 given elsewhere Unspecified 10/21/2020 03:5 7:00 PM EDT completed eCW1 ([facility]) COVID-19 dose #1 given elsewhere Unspecified 10/21/2020 03:5 7:00 PM EDT completed eCW1 ([facility]) COVID-19 dose #1 given elsewhere Unspecified 10/21/2020 03:5 7:00 PM EDT completed eCW1 ([facility]) COVID-19 VACCINE Moderna 10/21/2020 12:00:00 AM EDT completed [facility]SIIS Vaccine Series Complete: NOThis Data was Submitted to [facility] Via [employer]. Medications Medication Brand Name Start Date Product Form Dose Route Admi nistrative Instructions Pharmacy Instructions Status Indications Reaction Description Data Source(s) Loratadine 10 MG Oral Tablet [Claritin] Claritin 10 MG Radha tin 10 MG 11/18/2020 12:00:00 AM EDT 1.0 {tablet} active C laritin 10 MG eCW1 ([facility]) Fluticasone Propionate 50 MCG/ACT Fluticasone Propionate 50 MCG/ACT 11/18/2020 12:00:00 AM EDT 1.0 {spray_in_each_nostril} acti ve Fluticasone Propionate 50 MCG/ACT eCW1 ([facility]) apixaban 5 MG Oral Tablet [Eliquis] Eliquis 5 MG Eliquis 5 M G 11/18/2020 12:00:00 AM EDT active Eliquis 5 MG eCW1 ([facility]) apixaban 5 MG Oral Tablet [Eliquis] Eliquis 5 MG Eliquis 5 M G 11/18/2020 12:00:00 AM EDT active Eliquis 5 MG eCW1 ([facility]) Albuterol 0.83 MG/ML Inhalant Solution Albuterol Sulfa te (2.5 MG/3ML) 0.083% Albuterol Sulfate (2.5 MG/3ML) 0.083% 11/18/2020 12:00:00 AM EDT 3.0 {ml_as_needed} active Albuterol Sulfate (2.5 MG/3ML) 0.083% eCW1 ([facility]) Loratadine 10 MG Oral Tablet [Claritin] Claritin 10 MG Radha tin 10 MG 11/18/2020 12:00:00 AM EDT 1.0 {tablet} active C laritin 10 MG eCW1 ([facility]) Fluticasone Propionate 50 MCG/ACT Fluticasone Propionate 50 MCG/ACT 11/18/2020 12:00:00 AM EDT 1.0 {spray_in_each_nostril} acti ve Fluticasone Propionate 50 MCG/ACT eCW1 ([facility]) Fluticasone Propionate 50 MCG/ACT Fluticasone Propionate 50 MCG/ACT 11/18/2020 12:00:00 AM EDT 1.0 {spray_in_each_nostril} acti ve Fluticasone Propionate 50 MCG/ACT eCW1 ([facility]) apixaban 5 MG Oral Tablet [Eliquis] Eliquis 5 MG Eliquis 5 M G 11/18/2020 12:00:00 AM EDT active Eliquis 5 MG eCW1 ([facility]) Albuterol 0.83 MG/ML Inhalant Solution Albuterol Sulfa te (2.5 MG/3ML) 0.083% Albuterol Sulfate (2.5 MG/3ML) 0.083% 11/18/2020 12:00:00 AM EDT 3.0 {ml_as_needed} active Albuterol Sulfate (2.5 MG/3ML) 0.083% eCW1 ([facility]) Loratadine 10 MG Oral Tablet [Claritin] Claritin 10 MG Radha tin 10 MG 11/18/2020 12:00:00 AM EDT 1.0 {tablet} active C laritin 10 MG eCW1 ([facility]) Albuterol 0.83 MG/ML Inhalant Solution Albuterol Sulfa te (2.5 MG/3ML) 0.083% Albuterol Sulfate (2.5 MG/3ML) 0.083% 11/18/2020 12:00:00 AM EDT 3.0 {ml_as_needed} active Albuterol Sulfate (2.5 MG/3ML) 0.083% eCW1 ([facility]) apixaban 5 MG Oral Tablet Apixaban (ELIQUIS) 5 MG TABS tablet Apixaban (ELIQUIS) 5 MG TABS tablet 11/11/2020 12:00:00 AM EDT 5 mg Oral active Take 1 tablet (5 mg total) by mouth 2 (two) times a day [facility] Apixaban (ELIQUIS) tablet 10 mg 11/03/2020 11:00:00 AM EDT 10 mg Oral active [Order 1 Start] Name : Apixaban (ELIQUIS) tablet 10 mg Signed Summary: 10 mg, Oral, 2 times daily, First dose on Mon11/03/20 at 1100, For 7 days [Order 1 End] [Order 2 Start] Name: Apixaban (ELIQUIS) tablet 5 mg Signed Summary: 5 mg, Oral, 2 times daily, First dose on Mon11/10/20 at 0900 [Order 2 End] [facility] Medication administered onsite apixaban 5 MG Oral Tablet Apixaban (ELIQUIS) 5 MG TABS tablet Apixaban (ELIQUIS) 5 MG TABS tablet 11/03/2020 12:00:00 AM EDT 10 mg Oral a ctive Take 2 tablets (10 mg total) by mouth 2 (two) times a day for 7 days [facility] Albuterol 0.83 MG/ML Inhalant Solution a lbuterol (PROVENTIL) (2.5 MG/3ML) 0.083% nebulizer solution albuterol (PROVENTIL) (2.5 MG/3ML) 0.083% nebulizer so lution 11/03/2020 12:00:00 AM EDT 2.5 mg active Take 3 mL (2.5 mg total) by nebulization RT EVERY 4 HOURS NEEDED for wheezing or shortness of breath [facility] 500 ML heparin sodium, porcine 50 UNT/ML Injection heparin infusion 25,000 units in 500 mL 0.45% NaCl heparin infusion 25,000 units in 500 mL 0.45% NaCl 11/02/2020 07:00:00 PM EDT 11.5 U/kg/h Intravenous abort ed 11.5 Units/kg/hr 175.9 kg (40.457 mL/hr, rounded to 40.5 mL/hr), Intravenous, at 40.5 mL/hr, Continuous, Starting on Mon11/02/20 at 1900
For DVT/PEaPTT (seconds) Heparin Dose (weight based)< 34 Bolus: 75 units/kg IV (Maximum bolus: 10,000 units) and increase infusion 3 units/kg/hr IV34 - 50 Bolus: 40 units/kg IV (Maximum bolus: 10,000 units) and increase infusion 2 units/kg/hr IV50.1 - 58 No bolus. Increase infusion 1 unit/kg/hr IV58.1 - 87 Therapeutic, No Vibpmc77.1 - 97 Decrease infusion 1 unit/kg/hr IV 97.1 - 110Hold infusion for 30 minutes & decrease infusion 2 units/kg/hr IV> 110 Call MD if patient is bleeding. Hold infusion for 60 minutes & decrease infusion 3 units/kg/hr IVInitial heparin IV infusion rate:Do not exceed 1500 units/hour or 15 units/kg/hr (whichever is less)Infuse this medication only through single port tubing (SmartSite Infusion Set ref [id number]). Medication and tubing is to be discarded if infusion off for 4 hours.
[facility] Medication administered onsite 1 ML heparin sodium, porcine 1000 UNT/ML Injection heparin (porcine) injection 1,000-10,000 Units heparin (porcine) injection 1,000-10,000 Units 021 06:07:34 PM EDT U Intravenous aborted 1,000-10,000 Units, Intravenous, As needed, other, Starting on Mon11/02/20 at 1807
Round dose to nearest 100 units < 34 & nbsp; &nb sp; Bolus: 75 units/kg IV (Maximum bolus: 10,000 units) 34 - 50 Bolus: 40 units/kg IV (Maximum bolus: 10,000 units)
[facility] Medication administered onsite Acetaminophen 325 MG Oral Tablet acetaminophen (TYLENO L) 325 MG tablet 650 mg acetaminophen (TYLENOL) 325 MG tablet 650 mg 11/02/2020 01:00:44 PM EDT 650 mg Oral active 650 mg, Or al, Every 4 hours PRN, mild pain (1-3), Starting on Mon11/02/20 at 1300
"Maximum dose of acetaminophen is 4,000 mg from all sources in 24 hours."
[facility] Medication administered onsite alteplase (ACTIVASE) injection 1 mg [id number] 11/02/2020 11:00:00 AM EDT 1 mg completed 1 mg, Intracathe ter, Once, On Mon11/02/20 at 1100, For 1 dose
ForRight EKOS catheter
[facility] Medication administered onsite alteplase (ACTIVASE) 10 mg in sodium chloride (NS) 0.9 % 90 mL infusion 11/02/2020 10:00:00 AM EDT 1 mg/h Intravenous aborted 1 mg/hr (10 mL/hr), Intravenous, Continuous, Starting on Mon11/02/20 at 1000, For 6 hours
Infuse via EKOS catheter #2 (RIGHT). Pharmacy to prepare. Do not Shake
[facility] Medication administered onsite alteplase (ACTIVASE) 10 mg in sodium chloride (NS) 0.9 % 90 mL infusion 11/02/2020 10:00:00 AM EDT 1 mg/h Intravenous aborted 1 mg/hr (10 mL/hr), Intravenous, Continuous, Starting on Mon11/02/20 at 1000, For 6 hours
Infuse via EKOS catheter #1 (LEFT). Pharmacy to prepare. Do not Shake
[facility] Medication administered onsite sodium chloride 0.9% (NS) infusion [id number] 11/02/2020 10:00:00 AM EDT mL/h Intravenous aborted at 35-12 0 mL/hr, 35-120 mL/hr, Intravenous, Continuous, Starting on Mon11/02/20 at 1000
Infuse through coolant port. LEFT Start at 35 ml/hr and titrate by 10 ml/hr to a max of 120 ml/hr. Titrate when device temperature too high alarms, then titrate by 10 ml/hr to max of 120/ml hour until alarm resolves.
[facility] Medication administered onsite sodium chloride 0.9% (NS) infusion [id number] 11/02/2020 10:00:00 A M EDT Intravenous aborted at 30 mL/hr, Intravenous, Continuous, Starting on Mon11/02/20 at 1000
When bilateral sheaths are present, infuse 0.9% sodium chloride at 30 ml/hr via sheath not occupied by heparin infusion.
[facility] Medication administered onsite 500 ML heparin sodium, porcine 50 UNT/ML Injection heparin infusion 25,000 units in 500 mL 0.45% NaCl heparin infusion 25,000 units in 500 mL 0.45% NaCl 11/02/2020 10:00:00 AM EDT 1500 U/h Intravenous aborted 1,500 Units/hr (30 mL/hr), Intravenous, at 30 mL/hr, Continuous, Starting on Mon11/02/20 at 1000, For 6 hours
Infuse via Sheath During EKOS infusion only. Discontinue any prior anticoagulant order for heparin, enoxaparin, fondaparinux, rivaroxaban, apixaban, dabigatran, edoxaban or betrixaban. Avoid antiplatelet or antithrombotic medications, NSAIDS or other similar products unless discussed with provider. 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 Medication and tubing is to be discarded if infusion off for 4 hours.
[facility] Medication administered onsite sodium chloride 0.9% (NS) infusion 11/02/2020 10:00:00 AM EDT mL/h Intravenous aborted at 35-12 0 mL/hr, 35-120 mL/hr, Intravenous, Continuous, Starting on Mon11/02/20 at 1000
Infuse through coolant port. RIGHT Start at 35 ml/hr and titrate by 10 ml/hr to a max of 120 ml/hr. Titrate when device temperature too high alarms, then titrate by 10 ml/hr to max of 120/ml hour until alarm resolves.
[facility] Medication administered onsite alteplase (ACTIVASE) injection 1 mg [id number] 11/02/2020 10:00:00 AM EDT 1 mg completed 1 mg, Intracathe ter, Once, On Mon11/02/20 at 1000, For 1 dose
For LEFT EKOS catheter
[facility] Medication administered onsite sodium chloride 0.9% (NS) infusion 11/02/2020 09:33:05 A M EDT Intravenous aborted at 30 mL/hr, Intravenous, Continuous PRN, other, Starting on Mon11/02/20 at 0933
If alteplase infusion is complete, but the catheter will remain in place (KVO) LEFT
[facility] Medication administered onsite sodium chloride 0.9% (NS) infusion 11/02/2020 09:00:00 AM EDT 30 mL/h aborted at 30 mL/h r, 30 mL/hr, Intracatheter, Continuous, Starting on Mon11/02/20 at 0900, Intra-op
Once guidewire is removed, connect 0.9% NaCl to guidewire port infuse to maintain patency of central lumen of BEC OR flush with heparinized saline and cap off port. PE Study catheter #1 (LEFT)
[facility] Medication administered onsite sodium chloride 0.9% (NS) infusion [id number] 11/02/2020 09:00:00 AM EDT 30 mL/h aborted at 30 mL/h r, 30 mL/hr, Intracatheter, Continuous, Starting on Mon11/02/20 at 0900, Intra-op
Once guidewire is removed, connect 0.9% NaCl to guidewire port infuse to maintain patency of central lumen of BEC OR flush with heparinized saline and cap off port. PE Study catheter #2 (RIGHT)
[facility] Medication administered onsite Albuterol 0.833 MG/ML / Ipratropium Brom ashlyn 0.167 MG/ML Inhalant Solution ipratropium-albuterol (DUO-NEB) 0.5-2.5 mg/mL nebulizer solution 3 mL ipratropium-albuterol (DUO-NEB) 0.5-2.5 mg/mL nebulizer solution 3 mL 11/01/2020 09:00:00 AM EDT 3 mL Inhalation active 3 mL, Inhalation, 3 times daily, First dose on 11/01/20 at 0900 [facility] Medication administered onsite Albuterol 0.83 MG/ML Inhalant Solution a lbuterol (PROVENTIL) nebulizer solution 2.5 mg albuterol (PROVENTIL) nebulizer solution 2.5 mg 2020 08:13:40 AM EDT 2.5 mg active 2.5 mg, Nebulization, RT every 4 hours as needed, wheezing, shortness of breath, Starting on 11/01/20 at 0813 [facility] Medication administered onsite ondansetron (ZOFRAN) injection 4 mg [id number] 11/01/2020 08:09:5 5 AM EDT 4 mg Intravenous active 4 mg, In travenous, Every 4 hours PRN, nausea, vomiting, Starting on 11/01/20 at 0809 [facility] Medication administered onsite Acetaminophen 650 MG Rectal Suppository acetaminophen (TYLENOL) suppository 650 mg acetaminophen (TYLENOL) suppository 650 mg 11/01/2020 08:09:51 A M EDT 1 {suppository} Rectal active 650 mg (1 suppository), Rectal, Every 4 hours PRN, mild pain (1-3), headaches, Starting on 11/01/20 at 0809 [facility] Medication administered onsite 500 ML heparin sodium, porcine 50 UNT/ML Injection heparin infusion 25,000 units in 500 mL 0.45% NaCl heparin infusion 25,000 units in 500 mL 0.45% NaCl 11/01/2020 07:00:00 AM EDT 11.5 U/kg/h Intravenous abort ed 11.5 Units/kg/hr 175.9 kg (40.457 mL/hr, rounded to 40.5 mL/hr), Intravenous, at 40.5 mL/hr, Continuous, Starting on 11/01/20 at 0700
For DVT/PEaPTT (seconds) Heparin Dose (weight based)< 34 Bolus: 75 units/kg IV (Maximum bolus: 10,000 units) and increase infusion 3 units/kg/hr IV34 - 50 Bolus: 40 units/kg IV (Maximum bolus: 10,000 units) and increase infusion 2 units/kg/hr IV50.1 - 58 No bolus. Increase infusion 1 unit/kg/hr IV58.1 - 87 Therapeutic, No Fulgfd52.1 - 97 Decrease infusion 1 unit/kg/hr IV 97.1 - 110Hold infusion for 30 minutes & decrease infusion 2 units/kg/hr IV> 110 Call MD if patient is bleeding. Hold infusion for 60 minutes & decrease infusion 3 units/kg/hr IVInitial heparin IV infusion rate:Do not exceed 1500 units/hour or 15 units/kg/hr (whichever is less)Infuse this medication only through single port tubing (SmartSite Infusion Set ref [id number]). Medication and tubing is to be discarded if infusion off for 4 hours.
[facility] Medication administered onsite normal saline flush 0.9 % injection 3 mL [id number] 11/01/2020 07:00:00 AM EDT 3 mL Intravenous aborted 3 mL , Intravenous, Every 8 hours (scheduled), First dose on 11/01/20 at 0700
flush per protocol, D/C Main IV fluid if appropriate
[facility] Medication administered onsite 1 ML heparin sodium, porcine 1000 UNT/ML Injection heparin (porcine) injection 1,000-10,000 Units heparin (porcine) injection 1,000-10,000 Units 021 06:39:26 AM EDT U Intravenous aborted 1,000-10,000 Units, Intravenous, As needed, other, Starting on 11/01/20 at 0639
Round dose to nearest 100 units < 34 & nbsp; &nb sp; Bolus: 75 units/kg IV (Maximum bolus: 10,000 units) 34 - 50 Bolus: 40 units/kg IV (Maximum bolus: 10,000 units)
[facility] Medication administered onsite Insurance Providers Payer name Policy type / Coverage type Policy ID Covered libertarian ID Covered libertarian's relationship to [place] Policy [place] Plan Information Medicaid S [id number] S [id number] Managed Care - MVP P [id number] S [id number] Medicaid S [id number] Managed Care - MVP P [id number] S [id number] [facility] [id number] SP [id number] [facility] [id number] SP [id number] [facility] [employer] [id number] Self [id number] [facility] MEDICAID [id number] [facility] MEDICAID [id number] Mirta [id number] [facility] MEDICAID [id number] Mirta [id number] ANSI-Medicaid [id number] ANSI-Not a Secondary Insurance [id number] ANSI-Medicaid [id number] [employer] Medicaid Health Maintenance Organization (O) [id number] Self [id number] ANSI-Not a Secondary Insurance [id number] [facility] Medicaid Health Maintenance Organization (O) [id number] Self [id number] [facility] Medicaid Health Maintenance Organization (O) [id number] Self [id number] ANSI-Not a Secondary Insurance [id number] [facility] Medicaid Health Maintenance Organization [place] [id number] Self [id number] ANSI-Not a Secondary Insurance [id number] ANSI-Not a Secondary Insurance [id number] ANSI-Not a Secondary Insurance [id number] [facility] Medicaid Commercial [id number] Self [id number] [facility] O [id number] S [id number] [facility] [id number] SP [id number] Managed Care - [facility] P [id number] S [id number] SELF PAY ONLY [id number] SP [id number] [facility] [id number] SP [id number] [facility] Medicaid Commercial [id number] Self [id number] [facility] [id number] SP [id number] [facility] [id number] SP [id number] [facility] [place] [id number] S [id number] MEDICAID [id number] SP [id number] [facility] [id number] SP [id number] MEDICAID S [id number] S [id number] [facility] P [id number] S [id number] MEDICAID - O/P EMERGENCY ROOM [id number] NATIONAL GENERAL INSURANCE [id number] SELF PAY UNAVAILABLE SP UNAVAILA BLE [facility] [id number] SP [id number] [facility] [id number] SP [id number] [facility]) [id number] S [id number] ANSI-Not a Secondary Insurance [id number] ANSI-Medicaid [id number] ANSI-Not a Secondary Insurance [id number] ANSI-Medicaid [id number] [facility] [id number] SP [id number] [facility] [id number] SP [id number] ANSI-Not a Secondary Insurance [id number] Problems, Conditions, and Diagnoses Code Display Name Description Problem Type Effective Dates Data Source(s) E66.01 Morbid (severe) obesity due to excess ca lories Morbid (severe) obesity due to excess ca Diagnosis 11/01/2020 06:33:00 AM EDT [facility] J45.20 Mild intermittent asthma, uncomplicated Mild intermittent asthma, uncomplicated Diagnosis 11/01/2020 06:33:00 AM EDT [facility] I82.432 Acute embolism and thrombosis of left po pliteal vein Acute embolism and thrombosis of left po Diagnosis 11/01/2020 06:33:00 AM EDT [facility] I26.02 Saddle embolus of pulmonary artery with acute cor pulmonale Saddle embolus of pulmonary artery with Diagnosis 11/01/2020 06:33:00 AM EDT [facility] J30.81 [id number] Allergic to cats Problem 11/18/2020 12:00:00 AM EDT eCW1 ([facility]) I26.02 [id number] Acute saddle pulmonary embolism with acute cor pulmonale Problem 11/18/2020 12:00:00 AM EDT eCW1 ([facility]) J45.20 [id number] Mild intermittent asthma without complica tion Problem 11/18/2020 12:00:00 AM EDT eCW1 ([facility]) G47.34 [id number] Hypoxia, sleep related Problem 11/18/2020 12 :00:00 AM EDT eCW1 ([facility]) I82.432 Acute deep vein thrombosis ( DVT) of popliteal vein of left lower extremity Acute deep vein thrombosis (DVT) of popl iteal vein of left lower extremity [id number] 11/01/2020 12:00:00 AM EDT [facility] E66.01 Morbid obesity Morbid obesity [id number] 11/01/2020 12:00: 00 AM EDT [facility] J45.909 Asthma Asthma [id number] 11/01/2020 12:00:00 AM ED T [facility] I26.92 Acute saddle pulmonary embolus Acute saddle pulmonary embolus [id number] 11/01/2020 12:00:00 AM EDT [facility] Surgeries/Procedures Procedure Description Date Indications Data Source(s) ECHO TTHRC R-T 2D W/WOM-MODE COMPL SPEC&COLR DOP <td>E CHOCARDIOGRAM TRANSTHORACIC</td><td>Routine</td><td>11/03/2020 10:15 AM EDT</td><td></td><td> </td> 11/03/2020 10:15:25 AM EDT [facility] THROMBOPLASTIN TIME PARTIAL PLASMA/WHOLE BLOOD <td>APTT</td><td>Timed</td><td>11/03/2020 6:00 AM EDT</td><td></td><td> </td> 11/03/2020 06:00:00 AM EDT [facility] BLOOD COUNT COMPLETE AUTOMATED <td>CBC</td><td>Timed</ td><td>11/03/2020 6:00 AM EDT</td><td></td><td> </td> 11/03/2020 06:00:00 AM EDT [facility] COMPREHENSIVE METABOLIC PANEL <td>COMPREHENSIVE METABO LIC PANEL</td><td>Routine</td><td>11/03/2020 6:00 AM EDT</td><td></td><td> </td> 11/03/2020 06:00:00 AM EDT [facility] THROMBOPLASTIN TIME PARTIAL PLASMA/WHOLE BLOOD <td>APTT</td><td>Timed</td><td>11/03/2020 12:11 AM EDT</td><td></td><td> </td> 11/03/2020 12:11:00 AM EDT [facility] BLOOD COUNT COMPLETE AUTOMATED <td>CBC</td><td>Timed</ td><td>11/03/2020 12:11 AM EDT</td><td></td><td> </td> 11/03/2020 12:11:00 AM EDT [facility] THROMBOPLASTIN TIME PARTIAL PLASMA/WHOLE BLOOD <td>APTT</td><td>Timed</td><td>11/02/2020 6:09 PM EDT</td><td></td><td> </td> 11/02/2020 06:09:00 PM EDT [facility] BLOOD COUNT COMPLETE AUTOMATED <td>CBC</td><td>Timed</ td><td>11/02/2020 6:09 PM EDT</td><td></td><td> </td> 11/02/2020 06:09:00 PM EDT [facility] CARDIAC CATHETERIZATION <td>CARDIAC CATHETERIZATION</td><td>Routine</td><td>11/02/2020 10:45 AM EDT</td><td> Acute saddle pulmonary embolism with acute cor pulmonale</td><td> </td> 11/02/2020 10:45:16 AM EDT Acute saddle pulmonary embolism with acute cor pulmona le [facility] Acute saddle pulmonary embolism with acu te cor pulmonale COVID/FLU AB/RSV PCR <td>COVID/FLU AB/RSV PCR</td ><td>STAT</td><td>11/02/2020 7:57 AM EDT</td><td></td><td> </td> 11/02/2020 07:57:00 AM EDT [facility] NT PRO BNP <td>NT PRO BNP</td><td>Add-O n</td><td>11/02/2020 5:12 AM EDT</td><td></td><td> </td> 11/02/2020 05:12:00 AM EDT [facility] TROPONIN QUANTITATIVE <td>TROPONIN I</td><td>Routi ne</td><td>11/02/2020 5:12 AM EDT</td><td></td><td> </td> 11/02/2020 05:12:00 AM EDT [facility] THROMBOPLASTIN TIME PARTIAL PLASMA/WHOLE BLOOD <td>APTT</td><td>Routine</td><td>11/02/2020 5:12 AM EDT</td><td></td><td> </td> 11/02/2020 05:12:00 AM EDT [facility] BLOOD COUNT COMPLETE AUTOMATED <td>CBC</td><td>Routine </td><td>11/02/2020 5:12 AM EDT</td><td></td><td> </td> 11/02/2020 05:12:00 AM EDT [facility] MAGNESIUM <td>MAGNESIUM</td><td>Add-On </td><td>11/02/2020 5:12 AM EDT</td><td></td><td> </td> 11/02/2020 05:12:00 AM EDT [facility] BASIC METABOLIC PANEL CALCIUM TOTAL <td>BASIC METABOLI C PANEL</td><td>Routine</td><td>11/02/2020 5:12 AM EDT</td><td></td><td> </td> 11/02/2020 05:12:00 AM EDT [facility] SLCTV CATHETER PLMT LEFT/RIGHT PULMONARY ARTERY 2020 12:00:00 AM EDT [facility] ([facility]) Arterial Infusion Thrombolysis Other Than Carotid 11/02/2020 12:00:00 AM EDT [facility] ([facility] THROMBOPLASTIN TIME PARTIAL PLASMA/WHOLE BLOOD <td>APTT</td><td>Routine</td><td>11/01/2020 10:07 PM EDT</td><td></td><td> </td> 11/01/2020 10:07:00 PM EDT [facility] THROMBOPLASTIN TIME PARTIAL PLASMA/WHOLE BLOOD <td>APTT</td><td>STAT</td><td>11/01/2020 3:05 PM EDT</td><td></td><td> </td> 11/01/2020 03:05:00 PM EDT [facility] THROMBOPLASTIN TIME PARTIAL PLASMA/WHOLE BLOOD <td>APTT</td><td>Routine</td><td>11/01/2020 7:04 AM EDT</td><td></td><td> </td> 11/01/2020 07:04:00 AM EDT [facility] PROTHROMBIN TIME <td>PROTIME-INR</td><td>Rout ine</td><td>11/01/2020 7:04 AM EDT</td><td></td><td> </td> 11/01/2020 07:04:00 AM EDT [facility] BLOOD COUNT COMPLETE AUTOMATED <td>CBC</td><td>Routine </td><td>11/01/2020 7:04 AM EDT</td><td></td><td> </td> 11/01/2020 07:04:00 AM EDT [facility] COMPREHENSIVE METABOLIC PANEL <td>COMPREHENSIVE METABO LIC PANEL</td><td>Routine</td><td>11/01/2020 7:04 AM EDT</td><td></td><td> </td> 11/01/2020 07:04:00 AM EDT [facility] GLUC BLD GLUC MNTR DEV CLEARED FDA SPEC HOME USE <td>P OCT GLUCOSE</td><td>Routine</td><td>11/01/2020 6:56 AM EDT</td><td></td><td> </td> 11/01/2020 06:56:00 AM EDT [facility] INITIAL HOSPITAL CARE/DAY 50 MINUTES 11/01/2020 12:00: 00 AM EDT [facility] ([facility]) Results ID Date Data Source [id number] 11/03/2020 10:49:59 AM EDT [facility] Name Value Range Interpretation Code Description Data Che rce(s) Supporting Document(s) &PDF [facility] GHCSNu4aPeDPLgRf50/KCNjpWLUfn2DqPUlmBKo6AObxIQReU7AunGnkOQDBLsdZOVmNCHRSYJ2fYZ5x pYy [file] ICAgICAgICAgICAgICAgICAgICAgICAgICAgICAgICAgICAgICAgICAgICANCiAgICAgICAgICAgICAg ICAgICAgICAgICAgICAgICAgICAgICAgICAgICAgIC AgICAgICAgICAgICAgICAgICAgICAgICAgICAgICAgICAgICAgICAgICAgICAgICAgICAgICANCiAgIC AgICAgICAgICAgICAgICAgICAgICAgICAgICAgICAgICAgICAgICAgICAgICAgICAgICAgICAgICAgIC AgICAgICAgICAgICAgICAgICAgICAgICAgICAgICAg ICAgICANCiAgICAgICAgICAgICAgICAgICAgICAgICAgICAgICAgICAgICAgICAgICAgICAgICAgICAg ICAgICAgICAgICAgICAgICAgICAgICAgICAgICAgICAgICAgICAgICAgICAgICANCiAgICAgICAgICAg ICAgICAgICAgICAgICAgICAgICAgICAgICAgICAgIC AgICAgICAgICAgICAgICAgICAgICAgICAgICAgICAgICAgICAgICAgICAgICAgICAgICAgICAgICANCi AgICAgICAgICAgICAgICAgICAgICAgICAgICAgICAgICAgICAgICAgICAgICAgICAgICAgICAgICAgIC AgICAgICAgICAgICAgICAgICAgICAgICAgICAgICAg ICAgICAgICANCiAgICAgICAgICAgICAgICAgICAgICAgICAgICAgICAgICAgICAgICAgICAgICAgICAg ICAgICAgICAgICAgICAgICAgICAgICAgICAgICAgICAgICAgICAgICAgICAgICAgICANCiAgICAgICAg ICAgICAgICAgICAgICAgICAgICAgICAgICAgICAgIC AgICAgICAgICAgICAgICAgICAgICAgICAgICAgICAgICAgICAgICAgICAgICAgICAgICAgICAgICAgIC ANCiAgICAgICAgICAgICAgICAgICAgICAgICAgICAgICAgICAgICAgICAgICAgICAgICAgICAgICAgIC AgICAgICAgICAgICAgICAgICAgICAgICAgICAgICAg ICAgICAgICAgICANCiAgICAgICAgICAgICAgICAgICAgICAgICAgICAgICAgICAgICAgICAgICAgICAg ICAgICAgICAgICAgICAgICAgICAgICAgICAgICAgICAgICAgICAgICAgICAgICAgICAgICANCjw/eHBh X3vaeRXhlrD5A0wsId3TAg8EGI1ao2SwIFGaYDbmxi MvZsaHXjTyCOGnXplNEij2PTvjNY4OdJClW5RbM5NoXHlpSJ8SUGHeIWZkiDSpBBJlSCZqZnQ0OMYkMU iqPW8MnQHmKGlhHUKmBYTuAgPgZTOvCA6SOWXoM144pzRqGx4QSl6YDvHqWA6dim7GCbQxQDCgXifEGu d8YAygDE2MiDQnO3PgbGFds1qLZtWzD8XCQRW8NKMj Tj8GHHBoScQmOCNnRUllDQ3kOTGwILXNqFgmgtP3ZY5BQB2zfjKwJS3ZAzOxSq7oCa2KEfEgD8AxA5Pe NXIeIFBASCgdMB5NBSFrPTH6CNAxYZYkGDRHJlVoX30dZO9QJ5Lrd44sEoS5TQVmNeZmYIglCY61mHdr usUumDRluVzmAV8ZBn1+DQplbmRvYmoNCnhyZWYNCj BnVumGTsOlAOXcSKHdHBXqSuK3WbAnXg3CAHRrAVImRVTmHfFlZGBqLYPrRQhuAKIeJWJ0BpDiXBXqUV UqFO8UYiBgCXWlCve9RzrmXTMiSSJfwv7OPUZlCWMxYFK0ALAhCBGwRGErYFqeGFGbBRUzJUX8VSSkZM HtNJ4LNmArLNJvLKW3VwtkTSYoECSoew7TVPWvRHBn ZxM4LjUuZIUrMQYuLMrqTRKsSSD8WVMsOTZwGSUaMV5DPqOvLPWiSSw5SZWjMLEzRCVwlb6DNRQyHDNk CaJjToAfVSFvBHAyGDwdMTRdOCL5Qye0RVIrKDSrMS4NYkJfYLNeROi6JOCyMAJdSPTjja4AFLIlDPEu QAk0GXBsRPZsFLGrIUyrQKPkSYW4UNP4ZJRjKIHdYG 3YHkAmCSLgWYO3UPSxLJAtSHLqzw0FAJVcXKVcDQShLEPqFEWuGAJhDMhdSQVwQOI5SEHjCJIwFTApAH 2OWfUxZCRmDIB5IpXoIRKwBUEygg4MYAPoPWYuUXaaITGqGCEtBYFgJCulUBFpTTF4XPMwTZWnDNEnAZ 6IUnKuMWIcOPPtHdGkVKRpSZLktb6IVPUhCNIxIiUx KFCeOZDsIQOpFLclJDVaZSHnBwy0BVDhSKYjTI0JHvEzHBUnTfM8LTYaGFMjHWRbxd0NTDLkJQPtKwO6 CvPpBTDtPANjIVccGEFvCWZ0IBTgDAGvEXLxAS0DZrCaVDeeZMHGCrx2PXnqP6j9GAQhVg2BN3Zlz1Xu GiYrRARPDGlaAD5gfuBbGKNiNm3CK0bCDdqpVWM5T6 EvVaqrVKOvXbDoEVXyPTK3OKGcXXksNkF2Ar1wLHRvXmooBtQ4VTApCCR7XgN9UOQlNxO6HjE6WcFeFC RaYoRtFO9LVm0YPjP9ELV5nABkKo0GKyf8MRbQQcUaDA8LXUl= ID Date Data Source [id number] 11/03/2020 10:06:46 AM EDT [facility]FORMATIONPatient MRN Name Date of Age Gend*PT [id number] Jose Luis Vargasidi 1970 50 years F IPPT Location Admission Date/Time Visit ID Attending [id number] 11/01/20 0633 --- Dianna Hansen MD([id number]) EPI ID CSN Admitting Provider [id number] Esthela Krause MD([id number]) [facility] DISCHARGE SUMMARYPatient Name: Laila Vargas of : 1970 Age 50 yearsPrimary Physician: Lupe Romero PCP Mytqytada Date: 11/01/2020 Discharge Date:She will be discharged from [facility] to [facility] Diagnoses:Principal P nayelilem: Acute saddle pulmonary embolusActive Problems: Asthma Morbid obesity Acute deep vein thrombosis (DVT) of popliteal vein of left lower extremityResolved Problems: * No resolved hospital problems. *Discharge Medications:Current Discharge Medication ListSTART taking these medications Detailsalbuterol (PROVENTIL) (2.5 MG/3ML) 0.083% nebulizer solution Take 3 mL (2.5 mgtotal) by nebulization RT EVERY 4 HOURS NEEDED for wheezing or shortness ofbreathQty: 75 mL, Refills: 12!! Apixaban (ELIQUIS) 5 MG TABS tablet Take 2 tablets (10 mg total) by mouth 2(two) times a day for 7 daysQty: 60 table t, Refills: 0!! Apixaban (ELIQUIS) 5 MG TABS tablet Take 1 tablet (5 mg total) by mouth 2(two) times a dayQty: 60 tablet, Refills: 0 !! - Potential duplicate medications found. Please discuss with provider.Follow Up Instructions:The patient was given an after visit summary.Patient will follow up with MARGY Wadsworth in 7 days.Items needing special attention:Remove dressing within the next 48 hoursBrief Hospital Course:Laila Vargas is a 50-year-old female with a prior medical history which includesmorbid obesity and mild intermittent asthma. She reports that she was recentlyhelping a friend and cleaning out a home and there was a large degree ofcigarette smoke and she was feeling excessively short of breath. She wasevaluated by a local urgent care and started on prednisone and a combinationlong-acting beta agonist and inhaled corticosteroid. This did not give her muchrelief and she was becoming increasingly dyspneic with minimal activity. Joaquin pleaded with her to go to the emergency department and there she wasfound to have a saddle pulmonary embolus and was requiring supplementary oxygen.[facility] [place] [facility]. She was foundto have right ventricular overload and was recommended for thrombolysis with theEKOS augmented ultrasonic fragmentation of the saddle pulmonary embolus. Shereceived a protocol and was placed back onto heparin anticoagulation. She isnow breathing 90% on room air she does not have any evidence for tachycardia orblood pressure changes. She is able to ambulate without difficulty. She isurinating moving her bowels and eating a reasonable diet. Believe it suitableto place her on Eliquis for long-term anticoagulation. She does report that herfather once was diagnosed with pulmonary emboli. There may be a geneticcomponent she will require referral to catheter thrombolytic therapyhematologist as an outpatient for hypercoagulable work-up. She denies anyrecent travel by car or plane. No recent use of contraceptives orpostmenopausal hormone replacement. She denies any smoking. No prior historyof bleeding or thrombosis. Her catheter site looks excellent and there is noevidence for pseudoaneurysm or bleeding. She is encouraged to allow thedressing to remain on for an additional 48 hours. She denies any chest pain orpalpitations. She does have minor residual clot in her right lower extremity inthe popliteal vein which is not felt to be hemodynamically significant and lowrisk for embolization. She will be started on Eliquis 10 mg orally twice dailywhich is to continue for the initial 7 days followed by 5 mg orally twice dailythereafter. She will follow up with her primary care provider Edwin Wadsworth the [place] office in the next 7 days.Discharge Exam:Blood Pressure: BP: 151/69 Pulse: Heart Rate: 84Temperature: Temp: 98.1 F Respirations: Resp: 27Admission Weight: Weight: (!) 175.9 kg (387 lb 12.6 oz) O2 Saturation: SpO2: 99%Discharge Weight: Weight: (!) 176 kg (388 lb 0.2 oz) BMI: Body mass index is57.47 kg/m .Physical Exam General well developed, well nourished, cooperative, smiling, pleasant, in noapparent distress HEENT PERRLA, EOMI, fundi benign Lungs clear to auscultation Heart regular rate and rhythm and without murmur Abdomen soft, non-tender, non-distended, no organomegaly or masses Musculoskeletal Spine ROM normal. Muscular strength intact. Neuro normal without focal findings, mental status, speech normal, alert andoriented x3, cranial nerves 2-12 intact and reflexes normal and symmetricOther Pertinent Findings: NoneDiagnostics:Imaging:CT angiogram of the chestEchocardiogramProcedures:EKOS ultrasound augmented catheter-directed thrombolytic therapyConsultants:Dr. Yuen and Yahaira of PE response teamRecent Labs:BMP:Lab ResultsComponent Value Date NA 140 11/03/2020 K 4.1 11/03/2020 CL 107 11/03/2020 CO2 26 11/03/2020 ANIONGAP 7 11/03/2020 CALCIUM 8.2 (L) 11/03/2020 GLU 103 (H) 11/03/2020 BUN 10 11/03/2020 CREATININE 0.77 11/03/2020 GFRAA >60 11/03/2020 GFRNONAA >60 11/03/2020ardiac:Lab ResultsComponent Value Date TROPONINI <0.05 11/02/2020 PROBNP 1,394 (H) 11/02/2020BC Brief:Lab ResultsComponent Value Date WBC 8.2 11/03/2020 HGB 11.6 (L) 11/03/2020 HCT 35.4 (L) 11/03/2020 PLT 210 11/03/2020Dianna Hansen MD9:58 AMTotal time spent for discharge on date of discharge: 38 minutes Name Value Range Interpretation Code Description Data Che rce(s) Supporting Document(s) ID Date Data Source [id number] 11/03/2020 08:26:21 AM EDT [facility] Name Value Range Interpretation Code Description Data Che rce(s) Supporting Document(s) APTT 57.7 s (22.0-34.3) H [facility] ID Date Data Source [id number] 11/03/2020 08:16:34 AM EDT [facility] Name Value Range Interpretation Code Description Data Che rce(s) Supporting Document(s) SODIUM 140 mmol/L (136-145) [facility] POTASSIUM 4.1 mmol/L (3.6-5.2) [facility] CHLORIDE 107 mmol/L (100-108) [facility] CO2 26 mmol/L (22-31) [facility] ANION GAP 7 mmol/L (7-16) [facility] UREA NITROGEN 10 mg/dL (7-24) [facility] CREATININE 0.77 mg/dL (0.60-1.00) [facility] BUN/CREAT RATIO 13.0 RATIO (10.0-20.0) [facility] GLUCOSE 103 mg/dL (70-99) H [facility] CALCIUM 8.2 mg/dL (8.4-10.2) L [facility] TOTAL PROTEIN 6.7 g/dL (6.4-8.2) [facility] ALBUMIN 3.1 g/dL (3.5-4.6) L [facility] GLOBULIN 3.6 g/dL (2.7-4.3) [facility] ALB/GLOB RATIO 0.9 RATIO [facility] ALKALINE PHOSPHATASE 74 U/L (45-117) [facility] BILIRUBIN,TOTAL 0.4 mg/dL (0.0-1.0) [facility] PLEASE NOTE:Total bilirubin results may be falselyelevated in patients taking Eltrombopag. AST (SGOT) 36 U/L (11-39) [facility] ALT (SGPT) 83 U/L (12-78) H [facility] GFR >60 ml/min/1.73m2 (>59) [facility] GFR ( AMER) >60 ml/min/1.73m2 (>59) [facility] GFR INTERPRETATION [facility] --NORMAL KIDNEY FUNCTION OR MILD DISEASE - GFR >OR= 60CHRONIC KIDNEY DISEASE - GFR 15 - 59RENAL FAILURE - GFR <15 Est. GFR calculation based on the MDRDstudy equation, which assumes a steadystate for creatinine. Est. GFR should notbe used for medication dosing. ID Date Data Source [id number] 11/03/2020 07:50:55 AM EDT [facility] Name Value Range Interpretation Code Description Data Che rce(s) Supporting Document(s) WBC 8.2 10*3/uL (4.1-11.0) [facility] RBC 4.00 10*6/uL (4.00-5.40) [facility] HGB 11.6 g/dL (12.0-16.0) L [facility] HCT 35.4 % (36.0-47.0) L [facility] MCV 88.6 fL (80.0-95.0) [facility] MCH 29.1 pg (27.0-32.0) [facility] MCHC 32.8 g/dL (32.0-36.0) [facility] RDW 13.9 % (10.5-14.5) [facility] PLT 210 10*3/uL (150-450) [facility] MPV 7.5 fL (7.1-10.7) [facility] ID Date Data Source [id number] 11/03/2020 01:18:09 AM EDT [facility] Name Value Range Interpretation Code Description Data Che rce(s) Supporting Document(s) APTT 34.4 s (22.0-34.3) H [facility] ID Date Data Source [id number] 11/03/2020 01:06:53 AM EDT [facility] Name Value Range Interpretation Code Description Data Che rce(s) Supporting Document(s) WBC 9.1 10*3/uL (4.1-11.0) [facility] RBC 3.89 10*6/uL (4.00-5.40) L [facility] HGB 11.5 g/dL (12.0-16.0) L [facility] HCT 34.1 % (36.0-47.0) L [facility] MCV 87.7 fL (80.0-95.0) [facility] MCH 29.5 pg (27.0-32.0) [facility] MCHC 33.6 g/dL (32.0-36.0) [facility] RDW 14.2 % (10.5-14.5) [facility] PLT 211 10*3/uL (150-450) [facility] MPV 7.6 fL (7.1-10.7) [facility] ID Date Data Source [id number] 11/02/2020 07:49:07 PM EDT [facility] Name Value Range Interpretation Code Description Data Che rce(s) Supporting Document(s) APTT 29.2 s (22.0-34.3) [facility] ID Date Data Source [id number] 11/02/2020 07:39:56 PM EDT [facility] Name Value Range Interpretation Code Description Data Che rce(s) Supporting Document(s) WBC 8.8 10*3/uL (4.1-11.0) [facility] RBC 4.00 10*6/uL (4.00-5.40) [facility] HGB 11.7 g/dL (12.0-16.0) L [facility] HCT 35.5 % (36.0-47.0) L [facility] MCV 88.5 fL (80.0-95.0) [facility] MCH 29.3 pg (27.0-32.0) [facility] MCHC 33.0 g/dL (32.0-36.0) [facility] RDW 14.0 % (10.5-14.5) [facility] PLT 199 10*3/uL (150-450) [facility] MPV 7.9 fL (7.1-10.7) [facility] ID Date Data Source [id number] 11/02/2020 11:23:07 AM EDT [facility] Name Value Range Interpretation Code Description Data Che rce(s) Supporting Document(s) &PDF [facility] [id number] pYy [file] [id number]= ID Date Data Source [id number] 11/02/2020 07:57:00 AM EDT [facility] Name Value Range Interpretation Code Description Data Che rce(s) Supporting Document(s) SARS coronavirus 2 RNA [Presence] in Res piratory specimen by ZAYNAB with probe detection NOT DETECTED [facility] This lab was reported by [facility]. ID Date Data Source [id number] 11/02/2020 09:55:58 AM EDT [facility] Value Range Interpretation Code Description Data Che rce(s) Supporting Document(s) SPECIMEN DESCRIPTION [facility] INFLUENZA A (NEG) [facility] INFLUENZA B (NEG) [facility] RSV (NEG) [facility] COMMENT [facility] THE [place] FDA HAS MADE THIS TEST AVAILABL EUNDER AN EMERGENCY USE AUTHORIZATION(EUA) FOR THE DETECTION AND/OR DIAGNOSISOF THE VIRUS THAT CAUSES COVID-19.PERFORMED AT [address] [place] [id number] COVID19 RESULT (NDET) [facility] THIS ASSAY AMPLIFIES AND DETECTSTHE TARG ET RNA USING REAL-TIME PCR.TESTING PERFORMED ON [employer] GENEXPERTNEGATIVE 2019_NCOV RT-PCR RESULTS DONOT PRECLUDE 2019_NCOV INFECTION ANDSHOULD NOT BE USED THE SOLE BASISFOR PATIENT MANAGEMENT DECISIONS. FIRST TEST [facility] SY[facility]TOMATIC [facility] DATE OF SYMPT ONSET [facility] of [facility] ICU [facility] SET Lab [facility] of [facility] Lab [facility] ID Date Data Source [id number] 11/02/2020 04:14:41 PM EDT [facility] Name Value Range Interpretation Code Description Data Che rce(s) Supporting Document(s) MAGNESIUM 2.2 mg/dL (1.7-2.4) [facility] Date Data Source [id number] 11/02/2020 03:06:10 PM EDT Lab [facility] DLE[facility] Name Value Range Interpretation Code Description Data Che rce(s) Supporting Document(s) NT PRO BNP 1394 pg/mL (0-125) H [facility] [place] ID Date Data Source [id number] 11/02/2020 07:38:32 AM EDT [facility] Name Value Range Interpretation Code Description Data Che rce(s) Supporting Document(s) TROPONIN I <0.05 ng/mL (<0.05) [facility] [place] Less than 0.05: Myocardial injury unlike lyGreater than or equal to 0.05: Highly suggestive of myocardial injuryCorrelation with rise and/or fall ofserial troponins, clinical symptomsand ECG changes is necessary. ID Date Data Source [id number] 11/02/2020 07:34:15 AM EDT Lab [facility] Name Value Range Interpretation Code Description Data Che rce(s) Supporting Document(s) SODIUM 142 mmol/L (136-145) [facility] POTASSIUM 4.9 mmol/L (3.6-5.2) [facility] CHLORIDE 108 mmol/L (100-108) [facility] CO2 26 mmol/L (22-31) [facility] ANION GAP 8 mmol/L (7-16) [facility] UREA NITROGEN 12 mg/dL (7-24) [facility] CREATININE 0.97 mg/dL (0.60-1.00) [facility] BUN/CREAT RATIO 12.4 RATIO (10.0-20.0) [facility] GLUCOSE 109 mg/dL (70-99) H [facility] CALCIUM 8.1 mg/dL (8.4-10.2) L [facility] GFR >60 ml/min/1.73m2 (>59) [facility] GFR ( AMER) >60 ml/min/1.73m2 (>59) [facility] GFR INTERPRETATION Lab [facility] of [facility] --NORMAL KIDNEY FUNCTION OR MILD DISEASE - GFR >OR= 60CHRONIC KIDNEY DISEASE - GFR 15 - 59RENAL FAILURE - GFR <15 Est. GFR calculation based on the MDRDstudy equation, which assumes a steadystate for creatinine. Est. GFR should notbe used for medication dosing. ID Date Data Source [id number] 11/02/2020 05:54:27 AM EDT [facility] Name Value Range Interpretation Code Description Data Che rce(s) Supporting Document(s) APTT 78.8 s (22.0-34.3) H [facility] [place] ID Date Data Source [id number] 11/02/2020 05:41:00 AM EDT [facility] Name Value Range Interpretation Code Description Data Che rce(s) Supporting Document(s) WBC 9.1 10*3/uL (4.1-11.0) [facility] [place] RBC 3.87 10*6/uL (4.00-5.40) L [facility] HGB 11.4 g/dL (12.0-16.0) L [facility] HCT 34.3 % (36.0-47.0) L [facility] MCV 88.7 fL (80.0-95.0) [facility] MCH 29.5 pg (27.0-32.0) [facility] MCHC 33.3 g/dL (32.0-36.0) [facility] RDW 14.4 % (10.5-14.5) [facility] PLT 215 10*3/uL (150-450) [facility] MPV 8.0 fL (7.1-10.7) [facility] ID Date Data Source [id number] 11/01/2020 10:34:46 PM EDT [facility] Name Value Range Interpretation Code Description Data Che rce(s) Supporting Document(s) APTT 39.8 s (22.0-34.3) H [facility] ID Date Data Source [id number] 11/01/2020 04:25:39 PM EDT [facility] Name Value Range Interpretation Code Description Data Che rce(s) Supporting Document(s) APTT 98.2 s (22.0-34.3) H [facility] ALERTED CRITICAL [place] [id number] ON [id number] AT [id number] ID Date Data Source [id number] 11/01/2020 11:11:10 AM EDT [facility] INFORMATIONPatient MRN Name Date of Age Gend*PT [id number] Laila Vargas 1970 50 years F IPPT Location Admission Date/Time Visit ID Attending [id number] 11/01/20 0633 --- Anthony Calderon MD([id number]) EPI ID CSN Admitting Provider [id number] Esthela Krause MD([id number])PERT Team ConsultName: Laila Vargas Gender: femaleDate of : 1970 Age: 50 yearsDate/Time of Admit: 11/01/2020 6:33 AM Code Status: Full CodePrimary Care ProviderReferring Physician: Lupe Calderon [facility] Complaint: Shortness of breathReason for consult: Pulmonary embolismHPI: This is a pleasant 51-year-old female patient with no prior cardiac historyor history of DVT/PE who presented with 1 week history of increasing shortnessof breath with cough. She was treated for asthma and bronchitis as anoutpatient. Symptoms got worse [facility] by report saddle PE with an RV/LV ratio 1.5.The patient is transferred for further treatmentShe has dyspnea on exertion.She has history of obesity but no smoking or hormone replacement therapy.No history of thrombophilia, DVT, PE, or family history of thrombotic disorderNo recent surgery or immobilization.HistoryPast Medical History:Diagnosis Date Asthma Morbid obesityPast Surgical History:Procedure Laterality Date SECTIONSocial HistorySocioeconomic History Marital status: Single Spouse name: Not on file Number of children: Not on file Years of education: Not on file Highest education level: Not on fileOccupational History Not on fileTobacco Use Smoking status: Former Smoker Smokeless tobacco: Never UsedSubstance and Sexual Activity Alcohol use: Not Currently Drug use: Not Currently Sexual activity: Not on fileOther Topics Concern Not on fileSocial History Narrative Not on fileSocial Determinants of HealthFinancial Resource Strain: Difficulty of Paying Living Expenses:Food Insecurity: Worried About Running Out of Food in the Last Year: Ran Out of Food in the Last Year:Transportation Needs: Lack of Transportation (Medical): Lack of Transportation (Non-Medical):Physical Activity: Days of Exercise per Week: Minutes of Exercise per Session:Stress: Feeling of Stress :Social Connections: Frequency of Communication with Friends and Family: Frequency of Social Gatherings with Friends and Family: Attends Church Services: Active Member of Clubs or Organizations: Attends Club or Organization Meetings: Marital Status:Intimate Partner Violence: Fear of Current or Ex-Partner: Emotionally Abused: Physically Abused: Sexually Abused:Family HistoryProblem Relation Age of Onset Kidney failure Mother Uterine cancer Mother COPD FatherMedications & AllergiesAllergies: No Known Drug AllergiesMedications:No medications prior to admission. Scheduled Meds: ipratropium-albuterol 3 mL Inhalation RTTID normal saline flush 3 mL Intravenous Q8H SCHContinuous Infusions: heparin (porcine) in NaCl 11.5 Units/kg/hr (11/01/20 0848)PRN Meds:.acetaminophen, albuterol, atropine sulfate, heparin (porcine),ondansetronReview of Systems General Denies dizziness or lightheadedness. Denies any recent, unexpectedweight changes. HEENT Denies any loss or change of vision. Denies tinnitus. Respiratory Denies PND, orthopnea, [place], hemoptysis, cough, or shortness ofbreath. Cardiac Denies chest pain or pressure, denies palpitations GI Denies melena, hematochezia, nausea, or vomiting. MS Denies any lower extremity edema. Neuro Denies speech, motor, or sensory impairment. Psych Denies depression or anxiety. Endo Denies polyuria or polydipsia, denies temperature intolerance. Derm Denies diaphoresis, non-healing skin woundsPhysicalTemp (24hrs), Av.1 F, Min:97.5 F, Max:98.6 FBlood Pressure: BP: 157/72 Pulse: Heart Rate: 88Temperature: Temp: 97.5 F Respirations: Resp: 17Admission Weight: Weight: (!) 175.9 kg (387 lb 12.6 oz) O2 Saturation: SpO2: 96%Today's Weight: Weight: (!) 175.9 kg (387 lb 12.6 oz) BMI: There is no height orweight on file to calculate BMI.No intake or output data in the 24 hours ending 11/01/20 1043Physical Exam General Well developed, well nourished, no acute distress Neck No JVD, no bruits Chest Non-tender to palpation Lungs Clear to auscultation, no crackles, rhonchi, or wheezes Heart Normal S1 S2, no murmurs, clicks, or gallops Abdomen Soft, non-tender, non-distended, no palpable HSM or masses, + bowelsounds Neuro AAOx3, CN II-VII are grossly intact, no focal motor or sensory deficit Derm No rashes, or ulcers Vascular Pulses palpable and symmetric at femoral, radial, dorsalis pedis, andposterior tibial locations.DiagnosticsBMP:Lab ResultsComponent Value Date NA 142 11/01/2020 K 4.2 11/01/2020 CL 108 11/01/2020 CO2 26 11/01/2020 ANIONGAP 8 11/01/2020 CALCIUM 8.9 11/01/2020 GLU 118 (H) 11/01/2020 BUN 10 11/01/2020 CREATININE 0.94 11/01/2020 GFRAA >60 11/01/2020 GFRNONAA >60 11/01/2020ardiac: No results found for: TROPONINI, POCTROP, PROBNPCBC with Diff:Lab ResultsComponent Value Date WBC 10.0 11/01/2020 RBC 4.03 11/01/2020 HGB 12.1 11/01/2020 HCT 35.7 (L) 11/01/2020 MCV 88.7 11/01/2020 MCH 30.0 11/01/2020 MCHC 33.8 11/01/2020 RDW 14.0 11/01/2020 PLT 207 11/01/2020 MPV 7.3 11/01/2020ssessment and PlanPrincipal Problem: Acute saddle pulmonary embolusActive Problems: Asthma Morbid obesity Acute deep vein thrombosis (DVT) of popliteal vein of left lower extremityThis is a 50-year-old female patient with main risk factor of obesity whopresented with what appears to be a submassive (intermediate risk) pulmonaryembolism.I have personally reviewed her CT scan from [facility] and thisdemonstrated bilateral pulmonary emboli including a saddle embolus and extensioninto the segmental and subsegmental branches with dilated RV.The patient will be a good candidate for catheter directed thrombolysistomorrow.I have spoken to the patient about our Rescue clinical trial and she agreed toparticipate.Procedure will be performed tomorrow.We will obtain an echocardiogram today.Obtain lower extremity Doppler if it was not done already.Please obtain a troponin and BNP as wellSignature: NAVEED Jamesate: November 01, 2020Time: 10:43 AM Name Value Range Interpretation Code Description Data Che rce(s) Supporting Document(s) ID Date Data Source [id number] 11/01/2020 11:06:58 AM EDT [facility] INFORMATIONPatient MRN Name Date of Age Gend*PT [id number] Laila Vargas 1970 50 years F IPPT Location Admission Date/Time Visit ID Attending [id number] 11/01/20 0633 --- Anthony Calderon MD([id number]) EPI ID CSN Admitting Provider [id number] Esthela Krause MD([id number])Inpatient History & PhysicalHeidi CandiMRN: [id number] and Plan:Principal Problem: Acute saddle pulmonary embolusActive Problems: Asthma Morbid obesity Acute deep vein thrombosis (DVT) of popliteal vein of left lower extremityAssessment & PlanAcute saddle pulmonary embolus-Patient was transferred from [facility] after being found to have asaddle pulmonary embolus with right ventricular strain-Also found to have an acute DVT of the popliteal vein of left lower extremity-Symptoms started after she got the COVID-19 vaccine (Moderna)-Started on IV heparin drip- PERT attending front desk representative Dr Yuen was consulted prior to arrival and willevaluate the patient. Recommendations are appreciated-Continue with supportive careHistory of asthma-No on any medication presently-Give albuterol as needed-Start DuoNeb-Oxygen as neededMorbid obesity-Playing a crucial role in her current morbidityDiet: N.p.o.DVT prophylaxis: Therapeutic heparinCODE STATUS: FullAdvance Directives DiscussionI had a face to face discussion today with Patient regarding advance directives.We discussed the patient's code status wishes and the differences between whatit means to be full code, DNR, or DNR/DNI. (A DNR patient can still beelectively intubated in a non-cardiac arrest situation. A DNR/DNI will not beintubated in any circumstance.)At this time their wishes are for the patient to be made Full Code. This hasbeen entered into the chart.Other topics discussed today included Patient's values and goals of care andPain and symptom managementForms completed today includeHealth Care ProxyI spent < or = 15 minutes during the above discussion which was additional timespent separate from the hospital visit.HPIPatient is a 50 years old female with past medical history of asthma, and morbidobesity who presented to the hospital transferred from [facility] due toprogressive shortness of breath for more than a week. Symptoms started aftershe got a dose of moderna vaccine. She states that she has had worseningshortness of breath on exertion, she noticed mild swelling in her left ankle butno other complaints. She denies fever, chills, cough, chest pain, diaphoresis,nausea, vomiting, abdominal pain, diarrhea, dysuria, headaches, dizziness, orother complaints. Patient was found to have a saddle pulmonary embolus withright ventricular strain and was transferred to our facility for higher level ofcarePast Medical History:Past Medical History:Diagnosis Date Asthma Morbid obesityPast Surgical History:Past Surgical History:Procedure Laterality Date SECTIONMedications:No medications prior to admission.Allergies:Patient has no allergy information on record.Family H istory:Family HistoryProblem Relation Age of Onset Kidney failure Mother Uterine cancer Mother COPD FatherSocial History:Social HistorySocioeconomic History Marital status: Single Spouse name: Not on file Number of children: Not on file Years of education: Not on file Highest education level: Not on fileOccupational History Not on fileTobacco Use Smoking status: Former Smoker Smokeless tobacco: Never UsedSubstance and Sexual Activity Alcohol use: Not Currently Drug use: Not Currently Sexual activity: Not on fileOther Topics Concern Not on fileSocial History Narrative Not on fileSocial Determinants of HealthFinancial Resource Strain: Difficulty of Paying Living Expenses:Food Insecurity: Worried About Running Out of Food in the Last Year: Ran Out of Food in the Last Year:Transportation Needs: Lack of Transportation (Medical): Lack of Transportation (Non-Medical):Physical Activity: Days of Exercise per Week: Minutes of Exercise per Session:Stress: Feeling of Stress :Social Connections: Frequency of Communication with Friends and Family: Frequency of Social Gatherings with Friends and Family: Attends Church Services: Active Member of Clubs or Organizations: Attends Club or Organization Meetings: Marital Status:Intimate Partner Violence: Fear of Current or Ex-Partner: Emotionally Abused: Physically Abused: Sexually Abused:Review of SystemsConstitutional: Negative for activity change, chills, fatigue and fever.HENT: Negative for congestion, ear discharge, ear pain, rhinorrhea and sorethroat.Eyes: Negative for pain, discharge and redness.Respiratory: Positive for shortness of breath. Negative for cough, chesttightness and wheezing.Cardiovascular: Positive for leg swelling. Negative for chest pain andpalpitations.Gastrointestinal: Negative for abdominal distent ion, abdominal pain,constipation, diarrhea, nausea and vomiting.Endocrine: Negative for cold intolerance and heat intolerance.Genitourinary: Negative for difficulty urinating, dysuria, flank pain, frequencyand hematuria.Musculoskeletal: Negative for arthralgias, back pain, myalgias and neck pain.Skin: Negative for color change and rash.Allergic/Immunologic: Negative for environmental allergies.Neurological: Negative for dizziness, seizures, weakness and headaches.Hematological: Negative for adenopathy. Does not bruise/bleed easily.Psychiatric/Behavioral: Negative for agitation and decreased concentration. Thepatient is not nervous/anxious.Temp: [97.5 F-98.6 F] 97.5 FHeart Rate: [86] 86Resp: [12] 12BP: (140-150)/(80-93) 140/80Physical ExamVitals and nursing note reviewed.Constitutional: Appearance: She is morbidly obese. She is ill-appearing.HENT: Head: Normocephalic and atraumatic. Mouth/Throat: Pharynx: No oropharyngeal exudate.Eyes: General: Right eye: No discharge. Left eye: No discharge. Pupils: Pupils are equal, round, and reactive to light.Neck: Thyroid: No thyromegaly.Cardiovascular: Rate and Rhythm: Regular rhythm. Pulses: Intact distal pulses. Heart sounds: Normal heart sounds. No murmur heard.Pulmonary: Effort: Pulmonary effort is normal. No respiratory distress. Breath sounds: Examination of the right-lower field reveals decreased breathsounds. Examination of the left-lower field reveals decreased breath sounds.Decreased breath sounds present. No wheezing or rales.Abdominal: General: Bowel sounds are normal. There is no distension. Palpations: Abdomen is soft. Tenderness: There is no abdominal tenderness.Musculoskeletal: General: No tenderness or edema. Normal range of motion. Cervical back: Normal range of motion and neck supple.Skin: General: Skin is warm and dry. Findings: No rash.Neurological: Mental Status: She is alert and oriented to person, place, and time. Cranial Nerves: No cranial nerve deficit. Deep Tendon Reflexes: Reflexes are normal and symmetric.Psychiatric: Mood and Affect: Mood and affect normal. Thought Content: Thought content normal.Labs, Imaging and Other Diagnostic Tests:Diagnostic test reviewed for today's visit include: CT scan, ECG and Labs.Signature: NAVEED Jayate: November 01, 2020Time: 8:07 AM Name Value Range Interpretation Code Description Data Che rce(s) Supporting Document(s) ID Date Data Source [id number] 11/01/2020 08:07:52 AM EDT [facility] Name Value Range Interpretation Code Description Data [facility] rce(s) Supporting Document(s) SODIUM 142 mmol/L (136-145) [facility] POTASSIUM 4.2 mmol/L (3.6-5.2) [facility] CHLORIDE 108 mmol/L (100-108) [facility] CO2 26 mmol/L (22-31) [facility] ANION GAP 8 mmol/L (7-16) [facility] UREA NITROGEN 10 mg/dL (7-24) [facility] CREATININE 0.94 mg/dL (0.60-1.00) [facility] BUN/CREAT RATIO 10.6 RATIO (10.0-20.0) [facility] GLUCOSE 118 mg/dL (70-99) H [facility] CALCIUM 8.9 mg/dL (8.4-10.2) [facility] TOTAL PROTEIN 7.0 g/dL (6.4-8.2) [facility] ALBUMIN 3.2 g/dL (3.5-4.6) L [facility] GLOBULIN 3.8 g/dL (2.7-4.3) [facility] ALB/GLOB RATIO 0.8 RATIO [facility] ALKALINE PHOSPHATASE 83 U/L (45-117) [facility] BILIRUBIN,TOTAL 0.7 mg/dL (0.0-1.0) [facility] PLEASE NOTE:Total bilirubin results may be falselyelevated in patients taking Eltrombopag. AST (SGOT) 65 U/L (11-39) H [facility] ALT (SGPT) 132 U/L (12-78) H [facility] GFR >60 ml/min/1.73m2 (>59) [facility] GFR ( AMER) >60 ml/min/1.73m2 (>59) [facility] GFR INTERPRETATION [facility] --NORMAL KIDNEY FUNCTION OR MILD DISEASE - GFR >OR= 60CHRONIC KIDNEY DISEASE - GFR 15 - 59RENAL FAILURE - GFR <15 Est. GFR calculation based on the MDRDstudy equation, which assumes a steadystate for creatinine. Est. GFR should notbe used for medication dosing. ID Date Data Source [id number] 11/01/2020 07:51:59 AM EDT [facility] Name Value Range Interpretation Code Description Data Che rce(s) Supporting Document(s) PT 11.1 s (9.2-11.9) [facility] INR 1.06 [facility] SUGGESTED THERAPEUTIC RANGES USING INR F ORSTABILIZED ANTICOAGULATED PATIENTS:STANDARD DOSE THERAPY INR 2.0-3.0 DVT, PE, PREVENT DVT OR EMBOLISMHIGH DOSE THERAPY INR 2.5-3.5 PREVENT EMBOLISM FROM MECHANICAL HEART VALVE ID Date Data Source [id number] 11/01/2020 07:51:59 AM EDT [facility] Name Value Range Interpretation Code Description Data Che rce(s) Supporting Document(s) APTT 25.8 s (22.0-34.3) [facility] ID Date Data Source [id number] 11/01/2020 07:44:53 AM EDT [facility] Name Value Range Interpretation Code Description Data Che rce(s) Supporting Document(s) WBC 10.0 10*3/uL (4.1-11.0) [facility] RBC 4.03 10*6/uL (4.00-5.40) [facility] HGB 12.1 g/dL (12.0-16.0) [facility] HCT 35.7 % (36.0-47.0) L [facility] MCV 88.7 fL (80.0-95.0) [facility] MCH 30.0 pg (27.0-32.0) [facility] MCHC 33.8 g/dL (32.0-36.0) [facility] RDW 14.0 % (10.5-14.5) [facility] PLT 207 10*3/uL (150-450) [facility] MPV 7.3 fL (7.1-10.7) [facility] ID Date Data Source [id number] 11/01/2020 07:12:49 AM EDT [facility] Name Value Range Interpretation Code Description Data Che rce(s) Supporting Document(s) POC NOVA GLU 113 mg/dL (70-99) H [facility] [place] PERFORMED BY [facility] CLINICAL STAFF ID Date Data Source [id number] 11/01/2020 01:46:00 AM EDT [facility] Name Value Range Interpretation Code Description Data Che rce(s) Supporting Document(s) SARS coronavirus 2 RNA [Presence] in Res piratory specimen by ZAYNAB with probe detection NEGATIVE [facility] This lab was ordered by [facility] a nd reported by [facility]. ID Date Data Source [id number] 10/31/2020 10:25:00 PM EDT [facility] Name Value Range Interpretation Code Description Data Che rce(s) Supporting Document(s) SARS COVID ANTIGEN NEGATIVE [facility] This lab was ordered by ELBERT ordaz nd reported by [facility]. ID Date Data Source [id number] 05/09/2020 03:37:00 PM EST [facility] Name Value Range Interpretation Code Description Data Che rce(s) Supporting Document(s) BHD COVID-19 RT-PCR NASAL SWAB Not Detected Not Detected [facility] This test has received Emergency Use Aut horization (EUA). We willcontinue to follow federal and state requirements for COVID-19reporting. This test was developed and its performance characteristicsdetermined by [facility]. It has not been cleared orapproved by the U.S. Food and Drug Administration but has been givenemergency use authorization. Results should be used in conjunctionwith clinical findings and should not form the sole basis for adiagnosis or treatment decision. Methods: SARS-CoV-2 Multiplex RT-PCRAssayA not detected (negative) test result for this test means that SARS-CoV-2 RNA was not present in the specimen above the limit ofdetection. Laboratory test results should always be considered in thecontext of clinical observations and epidemiological data in making afinal diagnosis and patient management decisions. Results will bereported to government agencies as required. ID Date Data Source [id number] 05/08/2020 11:45:00 AM EST [facility] Name Value Range Interpretation Code Description Data Che rce(s) Supporting Document(s) SARS coronavirus 2 RNA [Presence] in Res piratory specimen by ZAYNAB with probe detection NEGATIVE [facility] This lab was ordered by Therese Olmstead and reported by [facility]. Procedure Social History Code Duration Value Status Description Data Source(s ) Smoking 11/18/2020 12:00:00 AM EDT Former Smoker completed Former Smoker eCW1 ([facility]) Smoking 11/18/2020 12:00:00 AM EDT Former Smoker completed Former Smoker eCW1 ([facility]) Smoking 11/18/2020 12:00:00 AM EDT Former Smoker completed Former Smoker eCW1 ([facility]) Alcohol intake 11/03/2020 12:00:00 AM EDT Ex-drinker (finding) comp leted Ex- drinker (finding) [facility] Tobacco use and exposure 11/01/2020 12:00:00 AM EDT Never used co mpleted Never used [facility] Smoking 11/01/2020 12:00:00 AM EDT Former smoker completed Former smoker [facility] Vital Signs ID Date Data Source UNK Name Value Range Interpretation Code Description Data Source(s) Body weight 353.8 [lb_av] 353.8 [lb_av] eCW1 ([facility]) Body weight 160.48 kg 160.48 kg W1 ([facility]) Body height 68 [in_i] 68 [in_i] eCW1 ([facility]) Body mass index (BMI) [Ratio] 53.79 kg/m2 53.79 kg/m2 W1 ([facility]) Heart rate 100 /min 100 /min eCW1 ([facility]) Respiratory rate 18 /min 18 /min eCW1 ([facility]) Body temperature 97.3 [degF] 97.3 [degF] eCW1 ( [facility]) Systolic blood pressure 124 mm[Hg] 124 mm[Hg] e CW1 ([facility]) Diastolic blood pressure 82 mm[Hg] 82 mm[Hg] eCW1 ([facility]) Respiratory rate 28 /min 28 /min [facility] Heart rate 78 /min 78 /min [facility] Oxygen saturation in Arterial blood by Pulse oximetry 98 % 98 % [facility] Systolic blood pressure 134 mm[Hg] 134 mm[Hg] [facility] Diastolic blood pressure 70 mm[Hg] 70 mm[Hg] [facility] Body temperature 36.72 Chiqui 36.72 Chiqui [facility] Body weight 176 kg 176 kg [facility] Body mass index (BMI) [Ratio] 57.47 kg/m2 57.47 kg/m2 [facility] Body height 175 cm 175 cm [facility] 5F 9in Patient Treatment Plan of Care Planned Activity Planned Date Details Description Data Source (s) apixaban 5 MG Oral Tablet [Eliquis] 11/18/2020 12:00:00 AM EDT eCW1 ([facility]) Albuterol 0.83 MG/ML Inhalant Solution 11/18/2020 12:00:00 AM EDT eCW1 ([facility]) Loratadine 10 MG Oral Tablet [Claritin] 11/18/2020 12:00:00 AM EDT eCW1 ([facility]) Fluticasone Propionate 50 MCG/ACT 11/18/2020 12:00:00 AM EDT eCW1 ([facility]) apixaban 5 MG Oral Tablet [Eliquis] 11/18/2020 12:00:00 AM EDT eCW1 ([facility]) Albuterol 0.83 MG/ML Inhalant Solution 11/18/2020 12:00:00 AM EDT eCW1 ([facility]) Loratadine 10 MG Oral Tablet [Claritin] 11/18/2020 12:00:00 AM EDT eCW1 ([facility]) Fluticasone Propionate 50 MCG/ACT 11/18/2020 12:00:00 AM EDT eCW1 ([facility]) apixaban 5 MG Oral Tablet [Eliquis] 11/18/2020 12:00:00 AM EDT eCW1 ([facility]) Albuterol 0.83 MG/ML Inhalant Solution 11/18/2020 12:00:00 AM EDT eCW1 ([facility]) Loratadine 10 MG Oral Tablet [Claritin] 11/18/2020 12:00:00 AM EDT eCW1 ([facility]) Fluticasone Propionate 50 MCG/ACT 11/18/2020 12:00:00 AM EDT eCW1 ([facility]) apixaban 5 MG Oral Tablet 11/11/2020 12:00:00 AM EDT [facility] apixaban 5 MG Oral Tablet 11/03/2020 12:00:00 AM EDT [facility] Albuterol 0.83 MG/ML Inhalant Solution 11/03/2020 12:00:00 AM EDT [facility] Albuterol 0.83 MG/ML Inhalant Solution 11/01/2020 08:13:40 AM EDT [facility] ondansetron (ZOFRAN) injection 4 mg 11/01/2020 08:09:55 AM EDT [facility] Acetaminophen 650 MG Rectal Suppository 11/01/2020 08:09:51 AM EDT [facility]
--- NOTE | 2020-12-24 21:01 | REPVR ---
PROCEDURE INFORMATION: Exam: US Duplex Left Lower Extremity Veins, Limited Exam date and time: 12/24/2020 8:50 PM Age: 50 years old Clinical indication: Pain; Leg, lower; Left; Additional info: L knee pain, h/o dvt lle, R/O dvt TECHNIQUE: Imaging protocol: Real-time Duplex ultrasound of the Left Lower Extremity with 2-D govea scale, color Doppler flow and spectral waveform analysis with image documentation. Limited exam focused on the left lower extremity veins. COMPARISON: US Duplex, Ext LOWER veins, bilat 11/01/2020 2:48 AM FINDINGS: Left deep veins: Unremarkable. The common femoral, femoral, proximal profunda femoral and popliteal veins are patent without thrombus. Normal Doppler waveforms. Normal compressibility and/or augmentation response. Left superficial veins: Unremarkable. Saphenofemoral junction is patent without thrombus. Soft tissues: Unremarkable. IMPRESSION: No evidence of deep vein thrombosis. Electronically signed by: Christopher Andre On 12/24/2020 21:00:38 PM
--- NOTE | 2020-12-24 21:55 | REPVR ---
PROCEDURE INFORMATION: Exam: XR Left Knee Exam date and time: 12/24/2020 9:33 PM Age: 50 years old Clinical indication: Other: L knee pain TECHNIQUE: Imaging protocol: XR Left knee. Views: 4 or more views. COMPARISON: US Duplex, Ext,LOWER veins,unilat LEFT 12/24/2020 8:40 PM FINDINGS: Bones/joints: There is mild osteophyte formation medial and lateral compartments. There is moderate osteophyte formation along the margins of the patella. There may be a small amount of joint fluid. There is no evidence of fracture or bony abnormality. Soft tissues: Normal. IMPRESSION: 1. Moderate osteophyte formation anterior compartment. 2. Mild osteophyte formation medial and lateral compartments. Electronically signed by: Christopher Andre On 12/24/2020 21:54:29 PM
[2020-12-24] MEDS ORDERED: ACET650T61 PO (22:18)
--- OUTSIDE RECORDS SUMMARY | 2020-12-24 22:26 | CCD ---
Author Author [facility] Organization [facility] Address Unknown Phone Unavailable Care Team Providers Care Wireless Manager Name Role Phone MELI MENDIOLA MD Unavailable [...] KRAUSE MD Unavailable Unavailable Jesica, Reynaldo Unavailable [phone] Philippehaw, Reynaldo Unavailable [phone] Philippehaw, Reynaldo Unavailable [phone] Philippehaw, Reynaldo Unavailable [phone] Philippehaw, Reynaldo Unavailable [phone] Philippehaw, Reynaldo Unavailable [phone] Anthony Calderon MD Unavailable Unavailable Anthony Calderon [...] is protected by Article 27-F of the [facility] Public Health law. If you continue you may have access to information: Regarding HIV / AIDS; Provided by facilities licensed or operated by the [facility] Office of Mental Health; or Provided by the [facility] Office for People With Developmental Disabilities. If such information is present, then the following [facility] mandated warning applies: This information has been [...] law may result in a fine or senior living sentence or both. A general authorization for the release of medical or other information is NOT sufficient authorization for further disc losure. Family History Family Member Name Family Member Gender Family Member Status Date o f Status Description Data Source(s) Unknown Unknown Problem [facility] ([facility]) Unknown Male Problem [facility] ([facility]) Unknown Male Problem [facility] ([facility]) Encounters Encounter Providers Location Date Indications Data Source(s ) [place] [address] [address] 11/18/2020 12:00:00 AM EDT eCW1 (Counts include 234 beds at the [facility]) Unknown [address] [facility] [address] [facility] [place] [address] 11/18/2020 12:00:00 AM EDT eCW1 (Counts include 234 beds at the [facility]) Unknown [address] [address] 11/18/2020 12:00:00 AM EDT eCW1 (Counts include 234 beds at the [facility]) Unknown [address] [address] 11/05/2020 12:00:00 AM EDT eCW1 (Counts include 234 beds at the [facility]) Inpatient Attender: DIANNA HANSEN MDAtt wei: MELI MENDIOLA MDAttender: Anthony Calderon MDAttender: ESTHELA KRAUSE MDAttender: ESTHELA KRAUSEAdmitter: ESTHELA KRAUSE MD [id number] 11/01/2020 06:33:00 AM EDT - 11/03/2020 02:35:00 PM EDT [facility] Patient discharged. Outpatient Attender: Reynaldo Mooney 10/15 03:50:15 PM EDT - 10/15/2020 05:38:59 PM EDT [facility] ([facility] ) Outpatient Attender: Spring Peck MD 0 05/08/2020 11:28:43 AM EST - 05/08/2020 12:04:25 PM EST [facility] ([facility]) Immunizations Vaccine Date Status Description Data Source(s) COVID-19 dose #1 given elsewhere Unspecified 10/21/2020 03:5 7:00 PM EDT completed eCW1 (Counts include 234 beds at the [facility]) COVID-19 dose #1 given elsewhere Unspecified 10/21/2020 03:5 7:00 PM EDT completed eCW1 (Counts include 234 beds at the [facility]) COVID-19 dose #1 given elsewhere Unspecified 10/21/2020 03:5 7:00 PM EDT completed eCW1 (Counts include 234 beds at the [facility]) COVID-19 VACCINE Moderna 10/21/2020 12:00:00 AM EDT completed [facility] Vaccine Series Complete: NOThis Data was Submitted to [facility] Via Reveal. Medications Medication Brand Name Start Date Product Form Dose Route Admi nistrative Instructions Pharmacy Instructions Status Indications Reaction Description Data Source(s) Loratadine 10 MG Oral Tablet [Claritin] Claritin 10 MG Radha tin 10 MG 11/18/2020 12:00:00 AM EDT 1.0 {tablet} active C laritin 10 MG eCW1 ([facility]) Fluticasone Propionate 50 MCG/ACT Fluticasone Propionate 50 MCG/ACT 11/18/2020 12:00:00 AM EDT 1.0 {spray_in_each_nostril} acti ve Fluticasone Propionate 50 MCG/ACT eCW1 ([facility]) apixaban 5 MG Oral Tablet [Eliquis] Eliquis 5 MG Eliquis 5 M G 11/18/2020 12:00:00 AM EDT active Eliquis 5 MG eCW1 ([facility]) apixaban 5 MG Oral Tablet [Eliquis] Eliquis 5 MG Eliquis 5 M G 11/18/2020 12:00:00 AM EDT active Eliquis 5 MG eCW1 ([facility]) Albuterol 0.83 MG/ML Inhalant Solution Albuterol Sulfa te (2.5 MG/3ML) 0.083% Albuterol Sulfate (2.5 MG/3ML) 0.083% 11/18/2020 12:00:00 AM EDT 3.0 {ml_as_needed} active Albuterol Sulfate (2.5 MG/3ML) 0.083% eCW1 ([facility]) Loratadine 10 MG Oral Tablet [Claritin] Claritin 10 MG Radha tin 10 MG 11/18/2020 12:00:00 AM EDT 1.0 {tablet} active C laritin 10 MG eCW1 ([facility]) Fluticasone Propionate 50 MCG/ACT Fluticasone Propionate 50 MCG/ACT 11/18/2020 12:00:00 AM EDT 1.0 {spray_in_each_nostril} acti ve Fluticasone Propionate 50 MCG/ACT eCW1 ([facility]) Fluticasone Propionate 50 MCG/ACT Fluticasone Propionate 50 MCG/ACT 11/18/2020 12:00:00 AM EDT 1.0 {spray_in_each_nostril} acti ve Fluticasone Propionate 50 MCG/ACT eCW1 ([facility]) apixaban 5 MG Oral Tablet [Eliquis] Eliquis 5 MG Eliquis 5 M G 11/18/2020 12:00:00 AM EDT active Eliquis 5 MG eCW1 ([facility]) Albuterol 0.83 MG/ML Inhalant Solution Albuterol Sulfa te (2.5 MG/3ML) 0.083% Albuterol Sulfate (2.5 MG/3ML) 0.083% 11/18/2020 12:00:00 AM EDT 3.0 {ml_as_needed} active Albuterol Sulfate (2.5 MG/3ML) 0.083% eCW1 ([facility]) Loratadine 10 MG Oral Tablet [Claritin] Claritin 10 MG Radha tin 10 MG 11/18/2020 12:00:00 AM EDT 1.0 {tablet} active C laritin 10 MG eCW1 ([facility]) Albuterol 0.83 MG/ML Inhalant Solution Albuterol Sulfa te (2.5 MG/3ML) 0.083% Albuterol Sulfate (2.5 MG/3ML) 0.083% 11/18/2020 12:00:00 AM EDT 3.0 {ml_as_needed} active Albuterol Sulfate (2.5 MG/3ML) 0.083% eCW1 ([facility]) apixaban 5 MG Oral Tablet Apixaban (ELIQUIS) 5 MG TABS tablet Apixaban (ELIQUIS) 5 MG TABS tablet 11/11/2020 12:00:00 AM EDT 5 mg Oral active Take 1 tablet (5 mg total) by mouth 2 (two) times a day [facility] Apixaban (ELIQUIS) tablet 10 mg 11/03/2020 11:00:00 [...] on Mon11/10/20 at 0900 [Order 2 End] [facility] Medication administered onsite apixaban 5 MG Oral Tablet Apixaban (ELIQUIS) 5 MG TABS tablet Apixaban (ELIQUIS) 5 MG TABS tablet 11/03/2020 12:00:00 AM EDT 10 mg Oral a ctive Take 2 tablets (10 mg total) by mouth 2 (two) times a day for 7 days [facility] Albuterol 0.83 MG/ML Inhalant Solution a lbuterol (PROVENTIL) (2.5 MG/3ML) 0.083% nebulizer solution albuterol (PROVENTIL) (2.5 MG/3ML) 0.083% nebulizer so lution 11/03/2020 12:00:00 AM EDT 2.5 mg active Take 3 mL (2.5 mg total) by nebulization RT EVERY 4 HOURS NEEDED for wheezing or shortness of breath [facility] 500 ML heparin sodium, porcine 50 UNT/ML [...] 1 unit/kg/hr IV58.1 - 87 Therapeutic, No Hwxpgy53.1 - 97 Decrease infusion 1 unit/kg/hr IV 97.1 - 110Hold infusion for 30 minutes & decrease infusion 2 units/kg/hr IV> 110 Call MD if patient is bleeding. Hold infusion for 60 minutes & decrease infusion 3 units/kg/hr IVInitial heparin IV infusion rate:Do not exceed 1500 units/hour or 15 units/kg/hr (whichever is less)Infuse this medication only through single port tubing (SmartSite Infusion Set ref [id number]). Medication and tubing is to be discarded if infusion off for 4 hours.
[facility] Medication administered onsite 1 ML heparin sodium, [...] 40 units/kg IV (Maximum bolus: 10,000 units)
[facility] Medication administered onsite Acetaminophen 325 MG Oral Tablet acetaminophen (TYLENO L) 325 MG tablet 650 mg acetaminophen (TYLENOL) 325 MG tablet 650 mg 11/02/2020 01:00:44 PM EDT 650 mg Oral active 650 mg, Or al, Every 4 hours PRN, mild pain (1-3), Starting on Mon11/02/20 at 1300
"Maximum dose of acetaminophen is 4,000 mg from all sources in 24 hours."
[facility] Medication administered onsite alteplase (ACTIVASE) injection 1 mg [id number] 11/02/2020 11:00:00 AM EDT 1 mg completed 1 mg, Intracathe ter, Once, On Mon11/02/20 at 1100, For 1 dose
ForRight EKOS catheter
[facility] Medication administered onsite alteplase (ACTIVASE) 10 mg in sodium chloride (NS) 0.9 % 90 mL infusion 11/02/2020 10:00:00 AM EDT 1 mg/h Intravenous aborted 1 mg/hr (10 mL/hr), Intravenous, Continuous, Starting on Mon11/02/20 at 1000, For 6 hours
Infuse via EKOS catheter #2 (RIGHT). Pharmacy to prepare. Do not Shake
[facility] Medication administered onsite alteplase (ACTIVASE) 10 mg in sodium chloride (NS) 0.9 % 90 mL infusion 11/02/2020 10:00:00 AM EDT 1 mg/h Intravenous aborted 1 mg/hr (10 mL/hr), Intravenous, Continuous, Starting on Mon11/02/20 at 1000, For 6 hours
Infuse via EKOS catheter #1 (LEFT). Pharmacy to prepare. Do not Shake
[facility] Medication administered onsite sodium chloride 0.9% (NS) infusion [id number] 11/02/2020 10:00:00 AM EDT mL/h Intravenous aborted at 35-12 0 mL/hr, 35-120 mL/hr, Intravenous, Continuous, Starting on Mon11/02/20 at 1000
Infuse through coolant port. LEFT Start at 35 ml/hr and titrate by 10 ml/hr to a max of 120 ml/hr. Titrate when device temperature too high alarms, then titrate by 10 ml/hr to max of 120/ml hour until alarm resolves.
[facility] Medication administered onsite sodium chloride 0.9% (NS) infusion [id number] 11/02/2020 10:00:00 A M EDT Intravenous aborted at 30 mL/hr, Intravenous, Continuous, Starting on Mon11/02/20 at 1000
When bilateral sheaths are present, infuse 0.9% sodium chloride at 30 ml/hr via sheath not occupied by heparin infusion.
[facility] Medication administered onsite 500 ML heparin sodium, [...] HIT, high suspicion of HIT, and/or strict oriental orthodox objections to porcine products - refer to Argatroban Order Set Infuse this medication only through single port tubing (SmartSite Infusion Set ref [id number]). Medication and tubing is to be discarded if infusion off for 4 hours.
[facility] Medication administered onsite sodium chloride 0.9% (NS) [...] max of 120/ml hour until alarm resolves.
[facility] Medication administered onsite alteplase (ACTIVASE) injection 1 mg [id number] 11/02/2020 10:00:00 AM EDT 1 mg completed 1 mg, Intracathe ter, Once, On Mon11/02/20 at 1000, For 1 dose
For LEFT EKOS catheter
[facility] Medication administered onsite sodium chloride 0.9% (NS) infusion 11/02/2020 09:33:05 A M EDT Intravenous aborted at 30 mL/hr, Intravenous, Continuous PRN, other, Starting on Mon11/02/20 at 0933
If alteplase infusion is complete, but the catheter will remain in place (KVO) LEFT
[facility] Medication administered onsite sodium chloride 0.9% (NS) infusion 11/02/2020 09:00:00 AM EDT 30 mL/h aborted at 30 mL/h r, 30 mL/hr, Intracatheter, Continuous, Starting on Mon11/02/20 at 0900, Intra-op
Once guidewire is removed, connect 0.9% NaCl to guidewire port infuse to maintain patency of central lumen of BEC OR flush with heparinized saline and cap off port. PE Study catheter #1 (LEFT)
[facility] Medication administered onsite sodium chloride 0.9% (NS) infusion [id number] 11/02/2020 09:00:00 AM EDT 30 mL/h aborted at 30 mL/h r, 30 mL/hr, Intracatheter, Continuous, Starting on Mon11/02/20 at 0900, Intra-op
Once guidewire is removed, connect 0.9% NaCl to guidewire port infuse to maintain patency of central lumen of BEC OR flush with heparinized saline and cap off port. PE Study catheter #2 (RIGHT)
[facility] Medication administered onsite Albuterol 0.833 MG/ML / Ipratropium Brom ashlyn 0.167 MG/ML Inhalant Solution ipratropium-albuterol (DUO-NEB) 0.5-2.5 mg/mL nebulizer solution 3 mL ipratropium-albuterol (DUO-NEB) 0.5-2.5 mg/mL nebulizer solution 3 mL 11/01/2020 09:00:00 AM EDT 3 mL Inhalation active 3 mL, Inhalation, 3 times daily, First dose on 11/01/20 at 0900 [facility] Medication administered onsite Albuterol 0.83 MG/ML Inhalant Solution a lbuterol (PROVENTIL) nebulizer solution 2.5 mg albuterol (PROVENTIL) nebulizer solution 2.5 mg 2020 08:13:40 AM EDT 2.5 mg active 2.5 mg, Nebulization, RT every 4 hours as needed, wheezing, shortness of breath, Starting on 11/01/20 at 0813 [facility] Medication administered onsite ondansetron (ZOFRAN) injection 4 mg [id number] 11/01/2020 08:09:5 5 AM EDT 4 mg Intravenous active 4 mg, In travenous, Every 4 hours PRN, nausea, vomiting, Starting on 11/01/20 at 0809 [facility] Medication administered onsite Acetaminophen 650 MG Rectal Suppository acetaminophen (TYLENOL) suppository 650 mg acetaminophen (TYLENOL) suppository 650 mg 11/01/2020 08:09:51 A M EDT 1 {suppository} Rectal active 650 mg (1 suppository), Rectal, Every 4 hours PRN, mild pain (1-3), headaches, Starting on 11/01/20 at 0809 [facility] Medication administered onsite 500 ML heparin sodium, [...] 1 unit/kg/hr IV58.1 - 87 Therapeutic, No Bmzxbu28.1 - 97 Decrease infusion 1 unit/kg/hr IV 97.1 - 110Hold infusion for 30 minutes & decrease infusion 2 units/kg/hr IV> 110 Call MD if patient is bleeding. Hold infusion for 60 minutes & decrease infusion 3 units/kg/hr IVInitial heparin IV infusion rate:Do not exceed 1500 units/hour or 15 units/kg/hr (whichever is less)Infuse this medication only through single port tubing (SmartSite Infusion Set ref [id number]). Medication and tubing is to be discarded if infusion off for 4 hours.
[facility] Medication administered onsite normal saline flush 0.9 % injection 3 mL [id number] 11/01/2020 07:00:00 AM EDT 3 mL Intravenous aborted 3 mL , Intravenous, Every 8 hours (scheduled), First dose on 11/01/20 at 0700
flush per protocol, D/C Main IV fluid if appropriate
[facility] Medication administered onsite 1 ML heparin sodium, [...] 40 units/kg IV (Maximum bolus: 10,000 units)
[facility] Medication administered onsite Insurance Providers Payer name Policy type / Coverage type Policy ID Covered green party ID Covered green party's relationship to [place] Policy [place] Plan Information Medicaid S [id number] S [id number] Managed Care - [place] P [id number] S [id number] Medicaid S [id number] Managed Care - [place] P [id number] S [id number] [facility] [id number] SP [id number] [facility] [id number] SP [id number] [facility] Commercial Insurance Co. [id number] Self [id number] [facility] MEDICAID [id number] [facility] MEDICAID [id number] Mirta [id number] [facility] MEDICAID [id number] Mirta [id number] ANSI-Medicaid [id number] ANSI-Not a Secondary Insurance [id number] ANSI-Medicaid [id number] [employer] Medicaid Health Maintenance Organization (O) [id number] 0 [id number] Self [id number] ANSI-Not a Secondary Insurance [id number] [facility] Medicaid Health Maintenance Organization (O) [id number] Self [id number] [facility] Medicaid Health Maintenance Organization (O) [id number] Self [id number] ANSI-Not a Secondary Insurance [id number] [facility] Medicaid Health Maintenance Organization ([employer]) [id number] 0 [id number] Self [id number] ANSI-Not a Secondary Insurance [id number] ANSI-Not a Secondary Insurance [id number] ANSI-Not a Secondary Insurance [id number] [facility] Medicaid Commercial [id number] Self [id number] [facility] O [id number] S [id number] [facility] [id number] SP [id number] Managed Care - [facility] P [id number] S [id number] SELF PAY ONLY [id number] SP [id number] [facility] [id number] SP [id number] [facility] Medicaid Commercial [id number] Self [id number] [facility] [id number] SP [id number] [facility] [id number] SP [id number] [facility] [place] [id number] S [id number] MEDICAID [id number] SP [id number] [facility] [id number] SP [id number] MEDICAID S [id number] S [id number] [facility] P [id number] S [id number] MEDICAID - O/P EMERGENCY ROOM [id number] NATIONAL GENERAL INSURANCE [id number] SELF PAY UNAVAILABLE SP UNAVAILA BLE [facility] [id number] SP [id number] [facility] [id number] SP [id number] [facility] [id number] S [id number] ANSI-Not a Secondary Insurance [id number] ANSI-Medicaid [id number] ANSI-Not a Secondary Insurance [id number] ANSI-Medicaid [id number] [facility] [id number] SP [id number] [facility] [id number] SP [id number] ANSI-Not a Secondary Insurance [id number] Problems, Conditions, and Diagnoses Code Display Name Description Problem Type Effective Dates Data Source(s) E66.01 Morbid (severe) obesity due to excess ca lories Morbid (severe) obesity due to excess ca Diagnosis 11/01/2020 06:33:00 AM EDT [facility] J45.20 Mild intermittent asthma, uncomplicated Mild intermittent asthma, uncomplicated Diagnosis 11/01/2020 06:33:00 AM EDT [facility] I82.432 Acute embolism and thrombosis of left po pliteal vein Acute embolism and thrombosis of left po Diagnosis 11/01/2020 06:33:00 AM EDT [facility] I26.02 Saddle embolus of pulmonary artery with acute cor pulmonale Saddle embolus of pulmonary artery with Diagnosis 11/01/2020 06:33:00 AM EDT [facility] J30.81 [id number] Allergic to cats Problem 11/18/2020 12:00:00 AM EDT eCW1 ([facility]) I26.02 [id number] Acute saddle pulmonary embolism with acute cor pulmonale Problem 11/18/2020 12:00:00 AM EDT eCW1 ([facility]) J45.20 [id number] Mild intermittent asthma without complica tion Problem 11/18/2020 12:00:00 AM EDT eCW1 ([facility]) G47.34 [id number] Hypoxia, sleep related Problem 11/18/2020 12 :00:00 AM EDT eCW1 ([facility]) I82.432 Acute deep vein thrombosis ( DVT) of popliteal vein of left lower extremity Acute deep vein thrombosis (DVT) of popl iteal vein of left lower extremity [id number] 11/01/2020 12:00:00 AM EDT [facility] E66.01 Morbid obesity Morbid obesity [id number] 11/01/2020 12:00: 00 AM EDT [facility] J45.909 Asthma Asthma [id number] 11/01/2020 12:00:00 AM ED T [facility] I26.92 Acute saddle pulmonary embolus Acute saddle pulmonary embolus [id number] 11/01/2020 12:00:00 AM EDT [facility] Surgeries/Procedures Procedure Description Date Indications Data Source(s) ECHO TTHRC R-T 2D W/WOM-MODE COMPL SPEC&COLR DOP <td>E CHOCARDIOGRAM TRANSTHORACIC</td><td>Routine</td><td>11/03/2020 10:15 AM EDT</td><td></td><td> </td> 11/03/2020 10:15:25 AM EDT [facility] THROMBOPLASTIN TIME PARTIAL PLASMA/WHOLE BLOOD <td>APTT</td><td>Timed</td><td>11/03/2020 6:00 AM EDT</td><td></td><td> </td> 11/03/2020 06:00:00 AM EDT [facility] BLOOD COUNT COMPLETE AUTOMATED <td>CBC</td><td>Timed</ td><td>11/03/2020 6:00 AM EDT</td><td></td><td> </td> 11/03/2020 06:00:00 AM EDT [facility] COMPREHENSIVE METABOLIC PANEL <td>COMPREHENSIVE METABO LIC PANEL</td><td>Routine</td><td>11/03/2020 6:00 AM EDT</td><td></td><td> </td> 11/03/2020 06:00:00 AM EDT [facility] THROMBOPLASTIN TIME PARTIAL PLASMA/WHOLE BLOOD <td>APTT</td><td>Timed</td><td>11/03/2020 12:11 AM EDT</td><td></td><td> </td> 11/03/2020 12:11:00 AM EDT [facility] BLOOD COUNT COMPLETE AUTOMATED <td>CBC</td><td>Timed</ td><td>11/03/2020 12:11 AM EDT</td><td></td><td> </td> 11/03/2020 12:11:00 AM EDT [facility] THROMBOPLASTIN TIME PARTIAL PLASMA/WHOLE BLOOD <td>APTT</td><td>Timed</td><td>11/02/2020 6:09 PM EDT</td><td></td><td> </td> 11/02/2020 06:09:00 PM EDT [facility] BLOOD COUNT COMPLETE AUTOMATED <td>CBC</td><td>Timed</ td><td>11/02/2020 6:09 PM EDT</td><td></td><td> </td> 11/02/2020 06:09:00 PM EDT [facility] CARDIAC CATHETERIZATION <td>CARDIAC CATHETERIZATION</td><td>Routine</td><td>11/02/2020 10:45 AM EDT</td><td> Acute saddle pulmonary embolism with acute cor pulmonale</td><td> </td> 11/02/2020 10:45:16 AM EDT Acute saddle pulmonary embolism with acute cor pulmona le [facility] Acute saddle pulmonary embolism with acu te cor pulmonale COVID/FLU AB/RSV PCR <td>COVID/FLU AB/RSV PCR</td ><td>STAT</td><td>11/02/2020 7:57 AM EDT</td><td></td><td> </td> 11/02/2020 07:57:00 AM EDT [facility] NT PRO BNP <td>NT PRO BNP</td><td>Add-O n</td><td>11/02/2020 5:12 AM EDT</td><td></td><td> </td> 11/02/2020 05:12:00 AM EDT [facility] TROPONIN QUANTITATIVE <td>TROPONIN I</td><td>Routi ne</td><td>11/02/2020 5:12 AM EDT</td><td></td><td> </td> 11/02/2020 05:12:00 AM EDT [facility] THROMBOPLASTIN TIME PARTIAL PLASMA/WHOLE BLOOD <td>APTT</td><td>Routine</td><td>11/02/2020 5:12 AM EDT</td><td></td><td> </td> 11/02/2020 05:12:00 AM EDT [facility] BLOOD COUNT COMPLETE AUTOMATED <td>CBC</td><td>Routine </td><td>11/02/2020 5:12 AM EDT</td><td></td><td> </td> 11/02/2020 05:12:00 AM EDT [facility] MAGNESIUM <td>MAGNESIUM</td><td>Add-On </td><td>11/02/2020 5:12 AM EDT</td><td></td><td> </td> 11/02/2020 05:12:00 AM EDT [facility] BASIC METABOLIC PANEL CALCIUM TOTAL <td>BASIC METABOLI C PANEL</td><td>Routine</td><td>11/02/2020 5:12 AM EDT</td><td></td><td> </td> 11/02/2020 05:12:00 AM EDT [facility] SLCTV CATHETER PLMT LEFT/RIGHT PULMONARY ARTERY 2020 12:00:00 AM EDT [facility] ([facility]) Arterial Infusion Thrombolysis Other Than Carotid 11/02/2020 12:00:00 AM EDT [facility] ([facility] THROMBOPLASTIN TIME PARTIAL PLASMA/WHOLE BLOOD <td>APTT</td><td>Routine</td><td>11/01/2020 10:07 PM EDT</td><td></td><td> </td> 11/01/2020 10:07:00 PM EDT [facility] THROMBOPLASTIN TIME PARTIAL PLASMA/WHOLE BLOOD <td>APTT</td><td>STAT</td><td>11/01/2020 3:05 PM EDT</td><td></td><td> </td> 11/01/2020 03:05:00 PM EDT [facility] THROMBOPLASTIN TIME PARTIAL PLASMA/WHOLE BLOOD <td>APTT</td><td>Routine</td><td>11/01/2020 7:04 AM EDT</td><td></td><td> </td> 11/01/2020 07:04:00 AM EDT [facility] PROTHROMBIN TIME <td>PROTIME-INR</td><td>Rout ine</td><td>11/01/2020 7:04 AM EDT</td><td></td><td> </td> 11/01/2020 07:04:00 AM EDT [facility] BLOOD COUNT COMPLETE AUTOMATED <td>CBC</td><td>Routine </td><td>11/01/2020 7:04 AM EDT</td><td></td><td> </td> 11/01/2020 07:04:00 AM EDT [facility] COMPREHENSIVE METABOLIC PANEL <td>COMPREHENSIVE METABO LIC PANEL</td><td>Routine</td><td>11/01/2020 7:04 AM EDT</td><td></td><td> </td> 11/01/2020 07:04:00 AM EDT [facility] GLUC BLD GLUC MNTR DEV CLEARED FDA SPEC HOME USE <td>P OCT GLUCOSE</td><td>Routine</td><td>11/01/2020 6:56 AM EDT</td><td></td><td> </td> 11/01/2020 06:56:00 AM EDT [facility] INITIAL HOSPITAL CARE/DAY 50 MINUTES 11/01/2020 12:00: 00 AM EDT [facility] ([facility]) Results ID Date Data Source [id number] 11/03/2020 10:49:59 AM EDT [facility] Name Value Range Interpretation Code Description Data Che rce(s) Supporting Document(s) &PDF [facility] WUUMKs3oZmXAVdWy38/AFXesSSThe7GoFJmfBVi1KEstICZtF4KzxSuvXAIAAttYMTvYYFZITN9sSA6k pYy [file] ICAgICAgICAgICAgICAgICAgICAgICAgICAgICAgICAgICAgICAgICAgICANCiAgICAgICAgICAgICAg ICAgICAgICAgICAgICAgICAgICAgICAgICAgICAgIC AgICAgICAgICAgICAgICAgICAgICAgICAgICAgICAgICAgICAgICAgICAgICAgICAgICAgICANCiAgIC AgICAgICAgICAgICAgICAgICAgICAgICAgICAgICAgICAgICAgICAgICAgICAgICAgICAgICAgICAgIC AgICAgICAgICAgICAgICAgICAgICAgICAgICAgICAg ICAgICANCiAgICAgICAgICAgICAgICAgICAgICAgICAgICAgICAgICAgICAgICAgICAgICAgICAgICAg ICAgICAgICAgICAgICAgICAgICAgICAgICAgICAgICAgICAgICAgICAgICAgICANCiAgICAgICAgICAg ICAgICAgICAgICAgICAgICAgICAgICAgICAgICAgIC AgICAgICAgICAgICAgICAgICAgICAgICAgICAgICAgICAgICAgICAgICAgICAgICAgICAgICAgICANCi AgICAgICAgICAgICAgICAgICAgICAgICAgICAgICAgICAgICAgICAgICAgICAgICAgICAgICAgICAgIC AgICAgICAgICAgICAgICAgICAgICAgICAgICAgICAg ICAgICAgICANCiAgICAgICAgICAgICAgICAgICAgICAgICAgICAgICAgICAgICAgICAgICAgICAgICAg ICAgICAgICAgICAgICAgICAgICAgICAgICAgICAgICAgICAgICAgICAgICAgICAgICANCiAgICAgICAg ICAgICAgICAgICAgICAgICAgICAgICAgICAgICAgIC AgICAgICAgICAgICAgICAgICAgICAgICAgICAgICAgICAgICAgICAgICAgICAgICAgICAgICAgICAgIC ANCiAgICAgICAgICAgICAgICAgICAgICAgICAgICAgICAgICAgICAgICAgICAgICAgICAgICAgICAgIC AgICAgICAgICAgICAgICAgICAgICAgICAgICAgICAg ICAgICAgICAgICANCiAgICAgICAgICAgICAgICAgICAgICAgICAgICAgICAgICAgICAgICAgICAgICAg ICAgICAgICAgICAgICAgICAgICAgICAgICAgICAgICAgICAgICAgICAgICAgICAgICAgICANCjw/eHBh S8ykgXYnvoV8P9wnFo3NIq1IYY8eu7MjEKDlUGjdyx EfLviMQjVnJTYvUjyIIxd2PJueKJ1PvKLlD1BeK0AwFDdbLQ7FBEIvOGYamXLzAVMeTQSeVfD1QKPdTZ clTW6NdRGqQUumRYMoMHBxUhDlCSPwIJ9INIHhN035ytSyAb2UTx9CYmBkTO7zny4RPmVrYDMmBjlWWg p3XRahIR1PqYZyC4FloEGzl9vCMwJzP0AZHAB6CAJq Yl1MPCPvBxDmHRFxVXieMU2xCAFoSPZAyVksyfC3HF3JZX9ircEhQR7IKgMjNs0dDb2LWxXxU4JlM5Sy ICPiGVNXPEodAH8LWECqJZK2JWPsAXHpZUTOHlAnZ36nBR1YR6Xxb69aIcZ9OVDmKtMgKNzrJX72hSna ceVqrEEpmBdeBG8NAm9+DQplbmRvYmoNCnhyZWYNCj OqQylROcIyWWVyMFTsLRWyJiF2BtAiCz1HZDSgVQDmGQByJpTyFCIaWFNpJPhzPGLaTEB3HsXdLJWxXZ TnET1FZcAuBGKtGgm7OwfuYEIsOMRwsv0XLNCnNKYiUKK1HGCtCLFjWWDuETohNZAdSYUrIXC7PPEjFW JaLQ8RYmMnORXoHGQ2IobbVFPdWUMkrw2KRWRgHNMh FdW5KbUhEQZtHMSiBGgxQDEeFOZ5QEArDPJhNOUyUK0QLtUaCMRqFEf0JSUiXELrPOXmwa3XZZXnVBHg CgRzMsLlJEObHFSiKHovQSUaTCV4Hvs6YFGmHSVtMK0HLcZwPWGlVHi7NPZfMKVwJXIsin3WUTSlIJNw ECy7LJVaPAGeCKReZLcpPEAyWFM8MIY5PGRnTHSgQQ 8RQeUnACSgIME1XOVkQAQrKKEwaq2WHWMeBJIkRHXqLWBiYSTjMRRnVNznOZJwRQS6XYAtTMIgHOXxTY 2BMaMrSQAiZGF3KzEeUCClTNFyti6RXZWwPCShSFogNXOmJPRzCLVlYZruKSZoYOE0EOEmLFAsTPHzRV 3NXsSrHVScUCPyAvVqPDXcVUBcyt6NHQScPZLzUaRb RDKfQDHhVQVcCOgsRUDmUSUbUml1VGCeGLXqOW8CTkMmAMKnBxI9BLIhFWDbJWDshe8RPWUaVZKgWgS7 KqGwAXQwUBTxDVcsSIXkXXC8TEAnDDCzLPHvSQ6UWdBoHIoyNCBNXxy0ITokM5o1CEUhIz9VG9Xes0Ha TuGlKAOMEGszSW8uriZpUQUbVm0NF7oLJhnvMRI4F0 PqLvwqGUZlGxLqGEUtAHX0LALpSBpvPtO9Sx2kPMMjUbuwViN3HGHlZYH7KcA5ZEFtEjF5RzS8HcNnAE NyLqXsRP8OTo9HViK8JOI5cZJiNl6VRqy9FOrXGqJoXE3LYAr= ID Date Data Source [id number] 11/03/2020 10:06:46 AM EDT [facility] INFORMATIONPatient MRN Name Date of Age Gend*PT [id number] Jose Luis Vargasidi 1970 50 years F IPPT Location Admission Date/Time Visit ID Attending [id number] 11/01/20 0633 --- Dianna Hansen MD([id number]) EPI ID CSN Admitting Provider [id number] Esthela Krause MD([id number]) [facility] DISCHARGE SUMMARYPatient Name: Laila Vargas of : 1970 Age 50 yearsPrimary Physician: Lupe Romero PCP Rkvomxbkg Date: 11/01/2020 Discharge Date:She will be discharged from [facility] to [facility] Diagnoses:Principal P nayelilem: Acute saddle pulmonary embolusActive [...] was requiring supplementary oxygen.[facility] [place] [facility] response [...] her primary care provider Edwin Wadsworth the [place] office in the next 7 days.Discharge Exam:Blood [...] rce(s) Supporting Document(s) ID Date Data Source [id number] 11/03/2020 08:26:21 AM EDT [facility] Name Value Range Interpretation Code Description Data Che rce(s) Supporting Document(s) APTT 57.7 s (22.0-34.3) H [facility] ID Date Data Source [id number] 11/03/2020 08:16:34 AM EDT [facility] Name Value Range Interpretation Code Description Data Che rce(s) Supporting Document(s) SODIUM 140 mmol/L (136-145) [facility] POTASSIUM 4.1 mmol/L (3.6-5.2) [facility] CHLORIDE 107 mmol/L (100-108) [facility] CO2 26 mmol/L (22-31) [facility] ANION GAP 7 mmol/L (7-16) [facility] UREA NITROGEN 10 mg/dL (7-24) [facility] CREATININE 0.77 mg/dL (0.60-1.00) [facility] BUN/CREAT RATIO 13.0 RATIO (10.0-20.0) [facility] GLUCOSE 103 mg/dL (70-99) H [facility] CALCIUM 8.2 mg/dL (8.4-10.2) L [facility] TOTAL PROTEIN 6.7 g/dL (6.4-8.2) [facility] ALBUMIN 3.1 g/dL (3.5-4.6) L [facility] GLOBULIN 3.6 g/dL (2.7-4.3) [facility] ALB/GLOB RATIO 0.9 RATIO [facility] ALKALINE PHOSPHATASE 74 U/L (45-117) [facility] BILIRUBIN,TOTAL 0.4 mg/dL (0.0-1.0) [facility] PLEASE NOTE:Total bilirubin results may be falselyelevated in patients taking Eltrombopag. AST (SGOT) 36 U/L (11-39) [facility] ALT (SGPT) 83 U/L (12-78) H [facility] GFR >60 ml/min/1.73m2 (>59) [facility] GFR ( AMER) >60 ml/min/1.73m2 (>59) [facility] GFR INTERPRETATION [facility] --NORMAL KIDNEY FUNCTION OR MILD DISEASE - GFR >OR= 60CHRONIC KIDNEY DISEASE - GFR 15 - 59RENAL FAILURE - GFR <15 Est. GFR calculation based on the MDRDstudy equation, which assumes a steadystate for creatinine. Est. GFR should notbe used for medication dosing. ID Date Data Source [id number] 11/03/2020 07:50:55 AM EDT [facility] Name Value Range Interpretation Code Description Data Che rce(s) Supporting Document(s) WBC 8.2 10*3/uL (4.1-11.0) [facility] RBC 4.00 10*6/uL (4.00-5.40) [facility] HGB 11.6 g/dL (12.0-16.0) L [facility] HCT 35.4 % (36.0-47.0) L [facility] MCV 88.6 fL (80.0-95.0) [facility] MCH 29.1 pg (27.0-32.0) [facility] MCHC 32.8 g/dL (32.0-36.0) [facility] RDW 13.9 % (10.5-14.5) [facility] PLT 210 10*3/uL (150-450) [facility] MPV 7.5 fL (7.1-10.7) [facility] ID Date Data Source [id number] 11/03/2020 01:18:09 AM EDT [facility] Name Value Range Interpretation Code Description Data Che rce(s) Supporting Document(s) APTT 34.4 s (22.0-34.3) H [facility] ID Date Data Source [id number] 11/03/2020 01:06:53 AM EDT [facility] Name Value Range Interpretation Code Description Data Che rce(s) Supporting Document(s) WBC 9.1 10*3/uL (4.1-11.0) [facility] RBC 3.89 10*6/uL (4.00-5.40) L [facility] HGB 11.5 g/dL (12.0-16.0) L [facility] HCT 34.1 % (36.0-47.0) L [facility] MCV 87.7 fL (80.0-95.0) [facility] MCH 29.5 pg (27.0-32.0) [facility] MCHC 33.6 g/dL (32.0-36.0) [facility] RDW 14.2 % (10.5-14.5) [facility] PLT 211 10*3/uL (150-450) [facility] MPV 7.6 fL (7.1-10.7) [facility] ID Date Data Source [id number] 11/02/2020 07:49:07 PM EDT [facility] Name Value Range Interpretation Code Description Data Che rce(s) Supporting Document(s) APTT 29.2 s (22.0-34.3) [facility] ID Date Data Source [id number] 11/02/2020 07:39:56 PM EDT [facility] Name Value Range Interpretation Code Description Data Che rce(s) Supporting Document(s) WBC 8.8 10*3/uL (4.1-11.0) [facility] [place] RBC 4.00 10*6/uL (4.00-5.40) [facility] HGB 11.7 g/dL (12.0-16.0) L [facility] HCT 35.5 % (36.0-47.0) L [facility] MCV 88.5 fL (80.0-95.0) [facility] MCH 29.3 pg (27.0-32.0) [facility] MCHC 33.0 g/dL (32.0-36.0) [facility] RDW 14.0 % (10.5-14.5) [facility] PLT 199 10*3/uL (150-450) [facility] MPV 7.9 fL (7.1-10.7) [facility] ID Date Data Source [id number] 11/02/2020 11:23:07 AM EDT [facility] Name Value Range Interpretation Code Description Data Che rce(s) Supporting Document(s) &PDF [facility] MOCNXx7fNtILHcUt58/HRRkjSDCzq6PxMDrwEAf4BIkpDIHhU0UiiQtdMVKWZsvVVYmUNVBVUM8yVD8z pYy [file] [id number]= ID Date Data Source [id number] 11/02/2020 07:57:00 AM EDT [facility] Name Value Range Interpretation Code Description Data Che rce(s) Supporting Document(s) SARS coronavirus 2 RNA [Presence] in Res piratory specimen by ZAYNAB with probe detection NOT DETECTED [facility] This lab was reported by [facility]. ID Date Data Source [id number] 11/02/2020 09:55:58 AM EDT [facility] Name Value Range Interpretation Code Description Data Che rce(s) Supporting Document(s) SPECIMEN DESCRIPTION [facility] INFLUENZA A (NEG) [facility] INFLUENZA B (NEG) [facility] RSV (NEG) [facility] COMMENT [facility] THE U.[place]. FDA HAS MADE THIS TEST AVAILABL EUNDER AN EMERGENCY USE AUTHORIZATION(EUA) FOR THE DETECTION AND/OR DIAGNOSISOF THE VIRUS THAT CAUSES COVID-19.PERFORMED AT [address] [place] [id number] COVID19 RESULT (NDET) [facility] THIS ASSAY AMPLIFIES AND DETECTSTHE TARG ET RNA USING REAL-TIME PCR.TESTING PERFORMED ON WSN SystemsID GENEXPERTNEGATIVE 2019_NCOV RT-PCR RESULTS DONOT PRECLUDE 2019_NCOV INFECTION ANDSHOULD NOT BE USED THE SOLE BASISFOR PATIENT MANAGEMENT DECISIONS. FIRST TEST [facility] SYMPTOMATIC [facility] [place] DATE OF SYMPT ONSET [facility] HOSPITALIZED [facility] ID Date Data Source [id number] 11/02/2020 04:14:41 PM EDT [facility] Name Value Range Interpretation Code Description Data Che rce(s) Supporting Document(s) MAGNESIUM 2.2 mg/dL (1.7-2.4) [facility] ID Date Data Source [id number] 11/02/2020 03:06:10 PM EDT [facility] Name Value Range Interpretation Code Description Data Che rce(s) Supporting Document(s) NT PRO BNP 1394 pg/mL (0-125) H [facility] ID Date Data Source [id number] 11/02/2020 07:38:32 AM EDT [facility] Name Value Range Interpretation Code Description Data Che rce(s) Supporting Document(s) TROPONIN I <0.05 ng/mL (<0.05) [facility] Less than 0.05: Myocardial injury unlike lyGreater than or equal to 0.05: Highly suggestive of myocardial injuryCorrelation with rise and/or fall ofserial troponins, clinical symptomsand ECG changes is necessary. ID Date Data Source [id number] 11/02/2020 07:34:15 AM EDT [facility] Name Value Range Interpretation Code Description Data Che rce(s) Supporting Document(s) SODIUM 142 mmol/L (136-145) [facility] POTASSIUM 4.9 mmol/L (3.6-5.2) [facility] CHLORIDE 108 mmol/L (100-108) [facility] CO2 26 mmol/L (22-31) [facility] ANION GAP 8 mmol/L (7-16) [facility] UREA NITROGEN 12 mg/dL (7-24) [facility] CREATININE 0.97 mg/dL (0.60-1.00) [facility] BUN/CREAT RATIO 12.4 RATIO (10.0-20.0) [facility] GLUCOSE 109 mg/dL (70-99) H [facility] CALCIUM 8.1 mg/dL (8.4-10.2) L [facility] GFR >60 ml/min/1.73m2 (>59) [facility] GFR ( AMER) >60 ml/min/1.73m2 (>59) [facility] GFR INTERPRETATION [facility] --NORMAL KIDNEY FUNCTION OR MILD DISEASE - GFR >OR= 60CHRONIC KIDNEY DISEASE - GFR 15 - 59RENAL FAILURE - GFR <15 Est. GFR calculation based on the MDRDstudy equation, which assumes a steadystate for creatinine. Est. GFR should notbe used for medication dosing. ID Date Data Source [id number] 11/02/2020 05:54:27 AM EDT [facility] Name Value Range Interpretation Code Description Data Che rce(s) Supporting Document(s) APTT 78.8 s (22.0-34.3) H [facility] ID Date Data Source [id number] 11/02/2020 05:41:00 AM EDT [facility] Name Value Range Interpretation Code Description Data Che rce(s) Supporting Document(s) WBC 9.1 10*3/uL (4.1-11.0) [facility] [place] RBC 3.87 10*6/uL (4.00-5.40) L [facility] HGB 11.4 g/dL (12.0-16.0) L [facility] HCT 34.3 % (36.0-47.0) L [facility] MCV 88.7 fL (80.0-95.0) [facility] MCH 29.5 pg (27.0-32.0) [facility] MCHC 33.3 g/dL (32.0-36.0) [facility] RDW 14.4 % (10.5-14.5) [facility] PLT 215 10*3/uL (150-450) [facility] MPV 8.0 fL (7.1-10.7) [facility] ID Date Data Source [id number] 11/01/2020 10:34:46 PM EDT [facility] Name Value Range Interpretation Code Description Data Che rce(s) Supporting Document(s) APTT 39.8 s (22.0-34.3) H [facility] ID Date Data Source [id number] 11/01/2020 04:25:39 PM EDT [facility] Name Value Range Interpretation Code Description Data Che rce(s) Supporting Document(s) APTT 98.2 s (22.0-34.3) H [facility] ALERTED CRITICAL [place] [address] ON [id number] AT [id number] ID Date Data Source [id number] 11/01/2020 11:11:10 AM EDT [facility] NT INFORMATIONPatient MRN Name Date of Age Gend*PT [id number] Laila Vargas 1970 50 years F IPPT Location Admission Date/Time Visit ID Attending [id number] 11/01/20 0633 --- Anthony Calderon MD([id number]) EPI ID CSN Admitting Provider [id number] Esthela Krause MD([id number])PERT Team ConsultName: Laila Vargas Gender: femaleDate of : 1970 Age: 50 yearsDate/Time of Admit: 11/01/2020 6:33 AM Code Status: Full CodePrimary Care ProviderReferring Physician: Lupe Calderon [facility] Complaint: Shortness of breathReason for consult: Pulmonary embolismHPI: This is a pleasant 51-year-old female patient with no prior cardiac historyor history of DVT/PE who presented with 1 week history of increasing shortnessof breath with cough. She was treated for asthma and bronchitis as anoutpatient. Symptoms got worse [facility] [...] Social Gatherings with Friends and Family: Attends [employer] Services: Active Member of Clubs or Organizations: [...] have personally reviewed her CT scan from [facility] and thisdemonstrated bilateral pulmonary emboli including a [...] rce(s) Supporting Document(s) ID Date Data Source [id number] 11/01/2020 11:06:58 AM EDT [facility] INFORMATIONPatient MRN Name Date of Age Gend*PT [id number] Laila Vargas 1970 50 years F IPPT Location Admission Date/Time Visit ID Attending [id number] 11/01/20 0633 --- Anthony Calderon MD([id number]) EPI ID CSN Admitting Provider [id number] Esthela Krause MD([id number])Inpatient History & PhysicalHeidi CandiMRN: [id number] and Plan:Principal Problem: Acute saddle pulmonary embolusActive Problems: Asthma Morbid obesity Acute deep vein thrombosis (DVT) of popliteal vein of left lower extremityAssessment & PlanAcute saddle pulmonary embolus-Patient was transferred from [facility] after being found to have asaddle pulmonary embolus with right ventricular strain-Also found to have an acute DVT of the popliteal vein of left lower extremity-Symptoms started after she got the COVID-19 vaccine (Moderna)-Started on IV heparin drip- PERT attending computer applications developer Dr Yuen was consulted prior to arrival [...] who presented to the hospital transferred from [facility] due toprogressive shortness of breath for [...] Social Gatherings with Friends and Family: Attends [employer] Services: Active Member of Clubs or Organizations: [...] rce(s) Supporting Document(s) ID Date Data Source [id number] 11/01/2020 08:07:52 AM EDT [facility] Name Value Range Interpretation Code Description Data [facility] rce(s) Supporting Document(s) SODIUM 142 mmol/L (136-145) [facility] POTASSIUM 4.2 mmol/L (3.6-5.2) [facility] CHLORIDE 108 mmol/L (100-108) [facility] CO2 26 mmol/L (22-31) [facility] ANION GAP 8 mmol/L (7-16) [facility] UREA NITROGEN 10 mg/dL (7-24) [facility] CREATININE 0.94 mg/dL (0.60-1.00) [facility] BUN/CREAT RATIO 10.6 RATIO (10.0-20.0) [facility] GLUCOSE 118 mg/dL (70-99) H [facility] CALCIUM 8.9 mg/dL (8.4-10.2) [facility] TOTAL PROTEIN 7.0 g/dL (6.4-8.2) [facility] ALBUMIN 3.2 g/dL (3.5-4.6) L [facility] GLOBULIN 3.8 g/dL (2.7-4.3) [facility] ALB/GLOB RATIO 0.8 RATIO [facility] ALKALINE PHOSPHATASE 83 U/L (45-117) [facility] BILIRUBIN,TOTAL 0.7 mg/dL (0.0-1.0) [facility] PLEASE NOTE:Total bilirubin results may be falselyelevated in patients taking Eltrombopag. AST (SGOT) 65 U/L (11-39) H [facility] ALT (SGPT) 132 U/L (12-78) H [facility] GFR >60 ml/min/1.73m2 (>59) [facility] GFR ( AMER) >60 ml/min/1.73m2 (>59) [facility] GFR INTERPRETATION [facility] --NORMAL KIDNEY FUNCTION OR MILD DISEASE - GFR >OR= 60CHRONIC KIDNEY DISEASE - GFR 15 - 59RENAL FAILURE - GFR <15 Est. GFR calculation based on the MDRDstudy equation, which assumes a steadystate for creatinine. Est. GFR should notbe used for medication dosing. ID Date Data Source [id number] 11/01/2020 07:51:59 AM EDT [facility] Name Value Range Interpretation Code Description Data Che rce(s) Supporting Document(s) PT 11.1 s (9.2-11.9) [facility] INR 1.06 [facility] SUGGESTED THERAPEUTIC RANGES USING INR F ORSTABILIZED ANTICOAGULATED PATIENTS:STANDARD DOSE THERAPY INR 2.0-3.0 DVT, PE, PREVENT DVT OR EMBOLISMHIGH DOSE THERAPY INR 2.5-3.5 PREVENT EMBOLISM FROM MECHANICAL HEART VALVE ID Date Data Source [id number] 11/01/2020 07:51:59 AM EDT [facility] Name Value Range Interpretation Code Description Data Che rce(s) Supporting Document(s) APTT 25.8 s (22.0-34.3) [facility] ID Date Data Source [id number] 11/01/2020 07:44:53 AM EDT [facility] Name Value Range Interpretation Code Description Data Che rce(s) Supporting Document(s) WBC 10.0 10*3/uL (4.1-11.0) [facility] RBC 4.03 10*6/uL (4.00-5.40) [facility] HGB 12.1 g/dL (12.0-16.0) [facility] HCT 35.7 % (36.0-47.0) L [facility] MCV 88.7 fL (80.0-95.0) [facility] MCH 30.0 pg (27.0-32.0) [facility] MCHC 33.8 g/dL (32.0-36.0) [facility] RDW 14.0 % (10.5-14.5) [facility] PLT 207 10*3/uL (150-450) [facility] MPV 7.3 fL (7.1-10.7) [facility] ID Date Data Source [id number] 11/01/2020 07:12:49 AM EDT [facility] Name Value Range Interpretation Code Description Data Che rce(s) Supporting Document(s) POC NOVA GLU 113 mg/dL (70-99) H [facility] [place] PERFORMED BY [facility] CLINICAL STAFF ID Date Data Source [id number] 11/01/2020 01:46:00 AM EDT [facility] Name Value Range Interpretation Code Description Data Che rce(s) Supporting Document(s) SARS coronavirus 2 RNA [Presence] in Res piratory specimen by ZAYNAB with probe detection NEGATIVE [facility] This lab was ordered by [facility] a nd reported by [facility]. ID Date Data Source [id number] 10/31/2020 10:25:00 PM EDT [facility] Name Value Range Interpretation Code Description Data Che rce(s) Supporting Document(s) SARS COVID ANTIGEN NEGATIVE [facility] This lab was ordered by [facility] ordaz nd reported by [facility]. ID Date Data Source [id number] 05/09/2020 03:37:00 PM EST [facility] Name Value Range Interpretation Code Description Data Che rce(s) Supporting Document(s) BHD COVID-19 RT-PCR NASAL SWAB Not Detected Not Detected [facility] This test has received Emergency Use Aut horization (EUA). We willcontinue to follow federal and state requirements for COVID-19reporting. This test was developed and its performance characteristicsdetermined by [facility]. It has not been cleared orapproved by [...] agencies as required. ID Date Data Source [id number] 05/08/2020 11:45:00 AM EST [facility] Name Value Range Interpretation Code Description Data Che rce(s) Supporting Document(s) SARS coronavirus 2 RNA [Presence] in Res piratory specimen by ZAYNAB with probe detection NEGATIVE [facility] This lab was ordered by Therese Olmstead and reported by [facility]. Procedure Social History Code Duration Value Status Description Data Source(s ) Smoking 11/18/2020 12:00:00 AM EDT Former Smoker completed Former Smoker eCW1 ([facility]) Smoking 11/18/2020 12:00:00 AM EDT Former Smoker completed Former Smoker eCW1 ([facility]) Smoking 11/18/2020 12:00:00 AM EDT Former Smoker completed Former Smoker eCW1 ([facility]) Alcohol intake 11/03/2020 12:00:00 AM EDT Ex-drinker (finding) comp leted Ex- drinker (finding) [facility] Tobacco use and exposure 11/01/2020 12:00:00 AM EDT Never used co mpleted Never used [facility] Smoking 11/01/2020 12:00:00 AM EDT Former smoker completed Former smoker [facility] Vital Signs ID Date Data Source UNK Name Value Range Interpretation Code Description Data Source(s) Body weight 353.8 [lb_av] 353.8 [lb_av] eCW1 ([facility]) Body weight 160.48 kg 160.48 kg W1 ([facility]) Body height 68 [in_i] 68 [in_i] eCW1 ([facility]) Body mass index (BMI) [Ratio] 53.79 kg/m2 53.79 kg/m2 W1 ([facility]) Heart rate 100 /min 100 /min eCW1 (Counts include [facility] beds at [facility]) Respiratory rate 18 /min 18 /min eCW1 ([facility]) Body temperature 97.3 [degF] 97.3 [degF] eCW1 ( [facility]) Systolic blood pressure 124 mm[Hg] 124 mm[Hg] e CW1 ([facility]) Diastolic blood pressure 82 mm[Hg] 82 mm[Hg] eCW1 ([facility]) Heart rate 78 /min 78 /min [facility] Respiratory rate 28 /min 28 /min [facility] Oxygen saturation in Arterial blood by Pulse oximetry 98 % 98 % [facility] Systolic blood pressure 134 mm[Hg] 134 mm[Hg] [facility] Diastolic blood pressure 70 mm[Hg] 70 mm[Hg] [facility] Body temperature 36.72 Chiqui 36.72 Chiqui [facility] Body weight 176 kg 176 kg [facility] Body mass index (BMI) [Ratio] 57.47 kg/m2 57.47 kg/m2 [facility] Body height 175 cm 175 cm [facility] 5F 9in Patient Treatment Plan of Care Planned Activity Planned Date Details Description Data Source (s) apixaban 5 MG Oral Tablet [Eliquis] 11/18/2020 12:00:00 AM EDT eCW1 ([facility]) Albuterol 0.83 MG/ML Inhalant Solution 11/18/2020 12:00:00 AM EDT eCW1 ([facility]) Loratadine 10 MG Oral Tablet [Claritin] 11/18/2020 12:00:00 AM EDT eCW1 ([facility]) Fluticasone Propionate 50 MCG/ACT 11/18/2020 12:00:00 AM EDT eCW1 ([facility]) apixaban 5 MG Oral Tablet [Eliquis] 11/18/2020 12:00:00 AM EDT eCW1 ([facility]) Albuterol 0.83 MG/ML Inhalant Solution 11/18/2020 12:00:00 AM EDT eCW1 ([facility]) Loratadine 10 MG Oral Tablet [Claritin] 11/18/2020 12:00:00 AM EDT eCW1 ([facility]) Fluticasone Propionate 50 MCG/ACT 11/18/2020 12:00:00 AM EDT eCW1 ([facility]) apixaban 5 MG Oral Tablet [Eliquis] 11/18/2020 12:00:00 AM EDT eCW1 ([facility]) Albuterol 0.83 MG/ML Inhalant Solution 11/18/2020 12:00:00 AM EDT eCW1 ([facility]) Loratadine 10 MG Oral Tablet [Claritin] 11/18/2020 12:00:00 AM EDT eCW1 ([facility]) Fluticasone Propionate 50 MCG/ACT 11/18/2020 12:00:00 AM EDT eCW1 ([facility]) apixaban 5 MG Oral Tablet 11/11/2020 12:00:00 AM EDT [facility] apixaban 5 MG Oral Tablet 11/03/2020 12:00:00 AM EDT [facility] Albuterol 0.83 MG/ML Inhalant Solution 11/03/2020 12:00:00 AM EDT [facility] Albuterol 0.83 MG/ML Inhalant Solution 11/01/2020 08:13:40 AM EDT [facility] ondansetron (ZOFRAN) injection 4 mg 11/01/2020 08:09:55 AM EDT [facility] Acetaminophen 650 MG Rectal Suppository 11/01/2020 08:09:51 AM EDT [facility]
== END 2020-12-24 22:41 | disposition home or self-care (01) ==
LOC: M ED 15:25
DX: M17.12 Unilateral primary osteoarthritis, left knee (principal); J45.909 Unspecified asthma, uncomplicated; I10 Essential (primary) hypertension; E66.9 Obesity, unspecified; Z79.82 Long term (current) use of aspirin; Z87.891 Personal history of nicotine dependence

== ENCOUNTER → 2021-06-09 | Outpatient (REF) | payer OTHER ==
[~2021-06-09] MED LIST changes: +ACET650T61 PO
== END ==
LOC: M SFHCPLAZ 13:13
PROVIDERS: ATTEND Physician Assistant Medical
DX: J06.9 Acute upper respiratory infection, unspecified (principal)

== ENCOUNTER → 2022-06-13 | Outpatient (CLI) | payer OTHER ==
[2022-06-13 10:49] LABS: BASO # 0.1 10^3/uL (0.0-0.2); BASO % 0.6 % (0.0-1.0); EOS # 0.3 10^3/uL (0.0-0.5); EOS % 3.9 % (0.0-3.0); HEMATOCRIT 41.2 % (36.0-47.0); LYMPH # 3.1 10^3/uL (1.5-5.0); MEAN CORPUSCULAR HEMOGLOBIN 28.9 pg (27.0-33.0); MEAN CORPUSCULAR HGB CONC 31.6 g/dl (32.0-36.5); MEAN CORPUSCULAR VOLUME 91.6 fl (80.0-96.0); MONO # 0.7 10^3/uL (0.0-0.8); MONO % 8.5 % (2.0-8.0); NEUTROPHILS # 3.9 10^3/uL (1.5-8.5); NEUTROPHILS % 48.5 % (36.0-66.0); PLATELET COUNT, AUTOMATED 290 10^3/uL (150-450); WHITE BLOOD COUNT 8.1 10^3/uL (4.0-10.0)
[2022-06-13 11:05] LABS: HEMOGLOBIN A1c 6.5 % (4.0-6.0)
[2022-06-13 11:13] LABS: ALBUMIN 3.5 G/DL (3.2-5.2); ALKALINE PHOSPHATASE 75 U/L (46-116); ALT/SGPT 27 U/L (7.0-40); AST/SGOT 23 U/L (<34); BILIRUBIN,TOTAL 0.4 MG/DL (0.3-1.2); BLOOD UREA NITROGEN 14 MG/DL (9-23); CALCIUM LEVEL 8.8 MG/DL (8.5-10.1); CARBON DIOXIDE LEVEL 26 MMOL/L (20-31); CHLORIDE LEVEL 105 MMOL/L (98-107); CHOLESTEROL LEVEL 163 MG/DL (<200); CHOLESTEROL RISK RATIO 3.85 (<5); CREATININE FOR GFR 0.68 MG/DL (0.55-1.30); GLOMERULAR FILTRATION RATE > 60.0 (>51); GLUCOSE, FASTING 121 MG/DL (60-100); HDL CHOLESTEROL 42.3 MG/DL (>40); LDL CHOLESTEROL 93.5 MG/DL (<100); NON-HDL-C 120.7 MG/DL; POTASSIUM SERUM 4.5 MMOL/L (3.5-5.1); SODIUM LEVEL 137 MMOL/L (136-145); TOTAL PROTEIN 7.2 G/DL (5.7-8.2); TRIGLYCERIDES LEVEL 136 MG/DL (<150)
[2022-06-13 11:14] LABS: THYROID STIMULATING HORMONE 1.349 uIU/ML (0.55-4.78)
[2022-06-13 11:15] LABS: FREE T4 0.92 NG/DL (0.89-1.76)
== END ==
LOC: M LAB 10:12
PROVIDERS: ATTEND Physician Assistant Medical
DX: R03.0 Elevated blood-pressure reading, without diagnosis of hypertension (principal)

== ENCOUNTER → 2022-07-15 | Outpatient (CLI) | payer OTHER ==
[2022-07-15 12:01] LABS: ALBUMIN 3.4 G/DL (3.2-5.2); ALKALINE PHOSPHATASE 77 U/L (46-116); ALT/SGPT 27 U/L (7.0-40); AST/SGOT 26 U/L (<34); BILIRUBIN,TOTAL 0.5 MG/DL (0.3-1.2); BLOOD UREA NITROGEN 10 MG/DL (9-23); CALCIUM LEVEL 8.5 MG/DL (8.5-10.1); CARBON DIOXIDE LEVEL 28 MMOL/L (20-31); CHLORIDE LEVEL 106 MMOL/L (98-107); CREATININE FOR GFR 0.77 MG/DL (0.55-1.30); GLOMERULAR FILTRATION RATE > 60.0 (>51); GLUCOSE, FASTING 111 MG/DL (60-100); POTASSIUM SERUM 4.4 MMOL/L (3.5-5.1); SODIUM LEVEL 141 MMOL/L (136-145); TOTAL PROTEIN 6.9 G/DL (5.7-8.2)
[2022-07-15 12:25] LABS: HEMOGLOBIN A1c 6.4 % (4.0-6.0)
== END ==
LOC: M LAB 10:48
PROVIDERS: ATTEND Physician Assistant Medical
DX: E11.9 Type 2 diabetes mellitus without complications (principal)

== ENCOUNTER 2022-08-05 11:05 | Emergency (ER) | payer OTHER ==
[~2022-08-05] VITALS: Ht 175.3 cm; Wt 163.2 kg
[2022-08-05 11:05] VITALS: BP 159/85
[2022-08-05] MEDS ORDERED: ELIQ5TAB PO (11:20)
[2022-08-05] MEDS ORDERED: ALBU2.5V10 NEB (11:21)
[2022-08-05] MEDS ORDERED: predniSONE 20 MG TAB PO ONE (12:30)
[2022-08-05] MEDS ORDERED: IPRATROPIUM 0.5MG/ALBUTEROL 2.5MG INH SOL UD 3ML (DUONEB) NEB ONE (12:30)
[2022-08-05] MEDS ORDERED: ALBUTEROL SULFATE 2.5MG/0.5ML INH NEB SOLN INH ONE (12:30)
[2022-08-05] MEDS ORDERED: BENZONATATE 100MG CAPSULE PO ONE (13:05)
[2022-08-05] MEDS ORDERED: ALBU6.7H6 INH (14:40)
[2022-08-05] MEDS ORDERED: PRED20TA PO (14:40)
[2022-08-05] MEDS ORDERED: BENZ-18 PO (14:40)
== END 2022-08-05 15:15 | disposition home or self-care (01) ==
LOC: M ED 11:05
DX: R09.89 Other specified symptoms and signs involving the circulatory and respiratory systems (principal); B97.81 Human metapneumovirus as the cause of diseases classified elsewhere; E66.01 Morbid (severe) obesity due to excess calories; Z68.43 Body mass index [BMI] 50.0-59.9, adult; Z86.711 Personal history of pulmonary embolism; F17.200 Nicotine dependence, unspecified, uncomplicated; Z79.01 Long term (current) use of anticoagulants
CPT/HCPCS: 71046; 87486; 87581; 87633; 87798; 94640; 99283; J7512

== ENCOUNTER → 2022-09-12 | Outpatient (REF) | payer OTHER ==
[~2022-09-12] MED LIST changes: +ALBU2.5V10 NEB; +ALBU6.7H6 INH; +BENZ-18 PO; +ELIQ5TAB PO
== END ==
LOC: M LAB REF 13:26
PROVIDERS: ATTEND Ophthalmology
DX: L82.1 Other seborrheic keratosis (principal)

== ENCOUNTER → 2023-01-31 | Outpatient (REF) | payer OTHER ==
[~2023-01-31] MED LIST changes: +MECL-209 PO; -MECL1TAB31 PO
[2023-01-31 19:00] LABS: BASO # 0.1 10^3/uL (0.0-0.2); BASO % 0.6 % (0.0-1.0); EOS # 0.3 10^3/uL (0.0-0.5); EOS % 3.2 % (0.0-3.0); HEMATOCRIT 41.2 % (36.0-47.0); HEMOGLOBIN 13.3 g/dl (12.0-15.5); LYMPH # 3.6 10^3/uL (1.5-5.0); LYMPH % 43.8 % (24.0-44.0); MEAN CORPUSCULAR HEMOGLOBIN 29.4 pg (27.0-33.0); MEAN CORPUSCULAR HGB CONC 32.3 g/dl (32.0-36.5); MEAN CORPUSCULAR VOLUME 91.2 fl (80.0-96.0); MONO # 0.7 10^3/uL (0.0-0.8); MONO % 8.2 % (2.0-8.0); NEUTROPHILS # 3.6 10^3/uL (1.5-8.5); NEUTROPHILS % 43.8 % (36.0-66.0); PLATELET COUNT, AUTOMATED 309 10^3/uL (150-450); RED BLOOD COUNT 4.52 10^6/uL (4.00-5.40); WHITE BLOOD COUNT 8.2 10^3/uL (4.0-10.0)
[2023-01-31 19:17] LABS: HEMOGLOBIN A1c 6.6 % (4.0-6.0)
[2023-01-31 19:21] LABS: CREATININE, URINE 136.3 MG/DL; MAU/CREAT RATIO 11.7 MCG/MG (0.0-30.0)
[2023-01-31 19:28] LABS: ALBUMIN 3.7 G/DL (3.2-5.2); ALKALINE PHOSPHATASE 79 U/L (46-116); ALT/SGPT 31 U/L (7.0-40); AST/SGOT 25 U/L (<34); BILIRUBIN,TOTAL 0.5 MG/DL (0.3-1.2); BLOOD UREA NITROGEN 13 MG/DL (9-23); CALCIUM LEVEL 8.9 MG/DL (8.5-10.1); CARBON DIOXIDE LEVEL 28 MMOL/L (20-31); CHLORIDE LEVEL 102 MMOL/L (98-107); CHOLESTEROL LEVEL 182 MG/DL (<200); CHOLESTEROL RISK RATIO 4.04 (<5); CREATININE FOR GFR 0.66 MG/DL (0.55-1.30); GLOMERULAR FILTRATION RATE > 60.0 (>51); GLUCOSE, FASTING 102 MG/DL (60-100); LDL CHOLESTEROL 111.8 MG/DL (<100); POTASSIUM SERUM 4.7 MMOL/L (3.5-5.1); SODIUM LEVEL 136 MMOL/L (136-145); THYROID STIMULATING HORMONE 1.145 uIU/ML (0.55-4.78); TOTAL 25(OH) VITAMIN D 18.2 NG/ML (20.0-100.0); TOTAL PROTEIN 7.5 G/DL (5.7-8.2); TRIGLYCERIDES LEVEL 126 MG/DL (<150)
== END ==
LOC: M LAB REF 17:31
PROVIDERS: ATTEND Pediatrics
DX: R03.0 Elevated blood-pressure reading, without diagnosis of hypertension (principal); Z68.43 Body mass index [BMI] 50.0-59.9, adult; E55.9 Vitamin D deficiency, unspecified

== ENCOUNTER → 2023-09-08 | Outpatient (REF) | payer OTHER ==
[~2023-09-08] MED LIST changes: +ELIQ2.5T PO; +OSTE1TAB2 PO; +TRUL10IN SC
[2023-09-08 17:41] LABS: BASO # 0.1 10^3/uL (0.0-0.2); BASO % 0.8 % (0.0-1.0); EOS # 0.3 10^3/uL (0.0-0.5); EOS % 4.6 % (0.0-3.0); HEMATOCRIT 39.9 % (36.0-47.0); HEMOGLOBIN 12.7 g/dl (12.0-15.5); LYMPH # 3.2 10^3/uL (1.5-5.0); LYMPH % 43.2 % (24.0-44.0); MEAN CORPUSCULAR HEMOGLOBIN 29.3 pg (27.0-33.0); MEAN CORPUSCULAR HGB CONC 31.8 g/dl (32.0-36.5); MEAN CORPUSCULAR VOLUME 91.9 fl (80.0-96.0); MONO # 0.7 10^3/uL (0.0-0.8); MONO % 9.8 % (2.0-8.0); NEUTROPHILS # 3.1 10^3/uL (1.5-8.5); NEUTROPHILS % 41.3 % (36.0-66.0); PLATELET COUNT, AUTOMATED 298 10^3/uL (150-450); RED BLOOD COUNT 4.34 10^6/uL (4.00-5.40); WHITE BLOOD COUNT 7.4 10^3/uL (4.0-10.0)
[2023-09-08 18:01] LABS: ALBUMIN 3.5 G/DL (3.2-5.2); ALKALINE PHOSPHATASE 70 U/L (46-116); ALT/SGPT 28 U/L (7.0-40); AST/SGOT 20 U/L (<34); BILIRUBIN,TOTAL 0.5 MG/DL (0.3-1.2); BLOOD UREA NITROGEN 11 MG/DL (9-23); CALCIUM LEVEL 8.8 MG/DL (8.5-10.1); CARBON DIOXIDE LEVEL 29 MMOL/L (20-31); CHLORIDE LEVEL 108 MMOL/L (98-107); GLOMERULAR FILTRATION RATE > 60.0 (>51); GLUCOSE, FASTING 95 MG/DL (60-100); POTASSIUM SERUM 4.5 MMOL/L (3.5-5.1); SODIUM LEVEL 141 MMOL/L (136-145); TOTAL PROTEIN 6.8 G/DL (5.7-8.2)
== END ==
LOC: M LAB REF 16:48
PROVIDERS: ATTEND Pediatrics
DX: E11.69 Type 2 diabetes mellitus with other specified complication (principal)

== ENCOUNTER 2023-11-22 15:45 | Emergency (ER) | payer OTHER ==
[~2023-11-22] VITALS: Ht 175.3 cm; Wt 158.0 kg
[2023-11-22 15:46] VITALS: BP 159/78; TEMP 95.2
[2023-11-22] MEDS ORDERED: ATOR1TAB21 (16:07)
[2023-11-22 16:19] VITALS: O2SAT 96
== END 2023-11-22 19:23 | disposition left against medical advice (07) ==
LOC: M ED 15:45
DX: Z53.21 Procedure and treatment not carried out due to patient leaving prior to being seen by health care provider (principal)

== ENCOUNTER → 2024-01-15 | Outpatient (REF) | payer OTHER ==
[~2024-01-15] MED LIST changes: +ATOR1TAB21
[2024-01-15 19:38] LABS: ALBUMIN 3.3 G/DL (3.2-5.2); ALKALINE PHOSPHATASE 80 U/L (35-104); ALT/SGPT 34 U/L (7.0-40); AST/SGOT 25 U/L (<34); BILIRUBIN,TOTAL 0.4 MG/DL (0.3-1.2); BLOOD UREA NITROGEN 12 MG/DL (9-23); CALCIUM LEVEL 9.1 MG/DL (8.5-10.1); CARBON DIOXIDE LEVEL 28 MMOL/L (20-31); CHLORIDE LEVEL 107 MMOL/L (98-107); CHOLESTEROL LEVEL 112 MG/DL (<200); CHOLESTEROL RISK RATIO 3.03 (<5); CREATININE FOR GFR 0.74 MG/DL (0.55-1.30); GLOMERULAR FILTRATION RATE > 60.0 (>51); GLUCOSE, FASTING 85 MG/DL (60-100); HDL CHOLESTEROL 36.9 MG/DL (>40); LDL CHOLESTEROL 44.7 MG/DL (<100); NON-HDL-C 75.1 MG/DL; POTASSIUM SERUM 4.9 MMOL/L (3.5-5.1); SODIUM LEVEL 139 MMOL/L (136-145); TOTAL PROTEIN 7.3 G/DL (5.7-8.2); TRIGLYCERIDES LEVEL 152 MG/DL (<150)
[2024-01-15 19:40] LABS: HEMOGLOBIN A1c 6.1 % (4.0-6.0)
== END ==
LOC: M LAB REF 17:22
PROVIDERS: ATTEND Pediatrics
DX: E78.5 Hyperlipidemia, unspecified (principal); E11.69 Type 2 diabetes mellitus with other specified complication

== ENCOUNTER → 2024-03-18 | Outpatient (CLI) | payer OTHER, SELFPAY | LOC: M WHC 14:51 | PROVIDERS: ATTEND Pediatrics | DX: Z12.31 Encounter for screening mammogram for malignant neoplasm of breast (principal) ==

== ENCOUNTER → 2024-04-01 | Outpatient (REF) | payer OTHER ==
[2024-04-01 14:44] LABS: BLOOD UREA NITROGEN 13 MG/DL (9-23); CALCIUM LEVEL 8.7 MG/DL (8.5-10.1); CARBON DIOXIDE LEVEL 29 MMOL/L (20-31); CHLORIDE LEVEL 103 MMOL/L (98-107); CREATININE FOR GFR 0.83 MG/DL (0.55-1.30); GLOMERULAR FILTRATION RATE > 60.0 (>51); GLUCOSE, FASTING 90 MG/DL (60-100); POTASSIUM SERUM 4.7 MMOL/L (3.5-5.1); SODIUM LEVEL 141 MMOL/L (136-145); THYROID STIMULATING HORMONE 2.004 uIU/ML (0.55-4.78)
== END ==
LOC: M LAB REF 12:51
PROVIDERS: ATTEND Pediatrics
DX: I10 Essential (primary) hypertension (principal); E11.69 Type 2 diabetes mellitus with other specified complication

== ENCOUNTER → 2024-05-13 | Outpatient (CLI) | payer OTHER ==
[2024-05-13 18:11] LABS: BASO % 0.5 % (0.0-1.0); EOS # 0.4 10^3/uL (0.0-0.5); EOS % 5.3 % (0.0-3.0); HEMATOCRIT 36.9 % (36.0-47.0); HEMOGLOBIN 11.8 g/dl (12.0-15.5); LYMPH # 3.6 10^3/uL (1.5-5.0); LYMPH % 44.9 % (24.0-44.0); MEAN CORPUSCULAR VOLUME 90.7 fl (80.0-96.0); MONO # 0.8 10^3/uL (0.0-0.8); MONO % 9.3 % (2.0-8.0); NEUTROPHILS # 3.2 10^3/uL (1.5-8.5); NEUTROPHILS % 39.8 % (36.0-66.0); PLATELET COUNT, AUTOMATED 268 10^3/uL (150-450); RED BLOOD COUNT 4.07 10^6/uL (4.00-5.40); WHITE BLOOD COUNT 8.1 10^3/uL (4.0-10.0)
[2024-05-13 18:37] LABS: ALBUMIN 3.3 G/DL (3.2-5.2); ALKALINE PHOSPHATASE 73 U/L (35-104); ALT/SGPT 28 U/L (7.0-40); AST/SGOT 27 U/L (<34); BILIRUBIN,TOTAL 0.4 MG/DL (0.3-1.2); BLOOD UREA NITROGEN 10 MG/DL (9-23); CALCIUM LEVEL 8.7 MG/DL (8.5-10.1); CARBON DIOXIDE LEVEL 28 MMOL/L (20-31); CHLORIDE LEVEL 104 MMOL/L (98-107); CREATININE FOR GFR 0.79 MG/DL (0.55-1.30); GLOMERULAR FILTRATION RATE > 60.0 (>51); GLUCOSE, FASTING 104 MG/DL (60-100); POTASSIUM SERUM 4.2 MMOL/L (3.5-5.1); SODIUM LEVEL 141 MMOL/L (136-145); TOTAL PROTEIN 6.9 G/DL (5.7-8.2)
== END ==
LOC: M LAB 16:40
PROVIDERS: ATTEND Internal Medicine Hematology & Oncology
DX: I26.99 Other pulmonary embolism without acute cor pulmonale (principal)

== ENCOUNTER → 2024-12-02 | Outpatient (REF) | payer OTHER ==
[~2024-12-02] MED LIST changes: +ELIQ2.5T; +LOSA50TA28
[2024-12-04 14:43] LABS: HPV APTIMA Not Detected (Not Detected)
== END ==
LOC: M PLALAB 11:17
PROVIDERS: ATTEND Nurse Practitioner Family
DX: Z12.4 Encounter for screening for malignant neoplasm of cervix (principal)